=== PATIENT | female | born 1940 | race Caucasian/White ===

== ENCOUNTER → 2023-05-25 13:24 | Outpatient (REF) | payer MEDICARE, OTHER, SELFPAY ==
[2023-05-25 14:41] LABS: Blood Urea Nitrogen 20 mg/dl (7-17); Calcium 10.1 mg/dl (8.4-10.2); Carbon Dioxide 27 mmol/L (22-30); Chloride 93 mmol/L (98-107); Glucose 103 mg/dl (70-99); Potassium 4.8 mmol/L (3.5-5.1); Sodium 127 mmol/L (135-145); eGFR > 60.00
== END ==
LOC: RAD 13:24
PROVIDERS: ATTENDING PHYSICIAN Family Medicine
DX: E87.1 Hypo-osmolality and hyponatremia (principal); M25.551 Pain in right hip; S22.000A Wedge compression fracture of unspecified thoracic vertebra, initial encounter for closed fracture
CPT/HCPCS: 36415; 72072; 73502; 80048

== ENCOUNTER → 2023-06-04 13:53 | Outpatient (REF) | payer MEDICARE, OTHER, SELFPAY ==
[2023-06-04 15:55] LABS: Blood Urea Nitrogen 25 mg/dl (7-17); Calcium 10.2 mg/dl (8.4-10.2); Carbon Dioxide 26 mmol/L (22-30); Chloride 93 mmol/L (98-107); Glucose 83 mg/dl (70-99); Potassium 4.7 mmol/L (3.5-5.1); Sodium 130 mmol/L (135-145); eGFR > 60.00
== END ==
LOC: HWLAB 13:53
PROVIDERS: ATTENDING PHYSICIAN Family Medicine
DX: E87.1 Hypo-osmolality and hyponatremia (principal)
CPT/HCPCS: 36415; 80048

== ENCOUNTER → 2023-06-14 13:40 | Outpatient (REF) | payer MEDICARE, OTHER, SELFPAY ==
[2023-06-14 15:04] LABS: Blood Urea Nitrogen 21 mg/dl (7-17); Calcium 9.6 mg/dl (8.4-10.2); Carbon Dioxide 27 mmol/L (22-30); Chloride 97 mmol/L (98-107); Glucose 110 mg/dl (70-99); Potassium 4.8 mmol/L (3.5-5.1); Sodium 128 mmol/L (135-145); eGFR > 60.00
== END ==
LOC: REG 13:40
PROVIDERS: ATTENDING PHYSICIAN Physician Assistant
DX: E87.1 Hypo-osmolality and hyponatremia (principal)
CPT/HCPCS: 36415; 80048

== ENCOUNTER 2023-07-09 12:26 | Emergency (ER) | payer MEDICARE, OTHER, SELFPAY ==
[2023-07-09 12:40] VITALS: BP 150/66
[2023-07-09 13:43] VITALS: BMI 15.4
[2023-07-09 13:50] LABS: % Basophils 0.3 % (0-2); % Eosinophils 0.8 % (0-6); % Immature Granulocytes 0.5 % (0-0.5); % Lymphocytes 8.7 % (20.5-51.1); % Monocytes 9.1 % (1.7-9.3); % Neutrophils 80.6 % (42.2-75.2); Absolute Eosinophils 0.1 10^3/uL (0-0.7); Absolute Lymphocytes 0.5 10^3/uL (1.2-3.4); Absolute Monocytes 0.6 10^3/uL (0.1-0.6); Hematocrit 28.3 % (37.0-47.0); Hemoglobin 9.8 g/dL (12.0-16.0); Mean Corp Hgb Conc. 34.6 g/dL (33.0-37.0); Mean Corpuscular Hgb 32.9 pg (27.0-31.0); Mean Platelet Volume 9.3 fL (7.4-10.4); Nucleated Red Blood Cells % 0 %; Platelet Count 292 10^3/uL (130-400); Red Blood Cell Count 2.98 10^6/uL (4.20-5.40); Red Cell Dist. Width 13.2 % (11.5-14.5); White Blood Cell Count 6.2 10^3/uL (4.8-10.8)
--- NOTE | 2023-07-09 14:00 | ED.GENMED ---
History of Present Illness
<Adan Pate PA-C - Last Filed: 07/15/23 10:26>
General
Chief Complaint: Back Pain
Source: patient
Exam Limitations: none
Time Seen by Provider: 07/09/23 13:36
Travel History
Have you had any contact with someone who has COVID-19?: No
Do you have any symptoms of coronavirus? Fever > 100 degrees, chills, cough, shortness of breath, sore throat, loss of taste or smell, muscle aches, or headache?: No
History of Present Illness
History of Present Illness:
82-year-old female presents with ongoing symptoms of nausea mid back pain and lightheadedness. The symptoms have been going on for quite some time. She also is known to be hyponatremic. Symptoms are persistent and worsening and presented here for
evaluation. She lives with her daughter. The daughter does most of the history. Patient denies significant abdominal pain. No chest pain. There is lightheadedness occasionally. Patient also has been taking tramadol for her chronic back pain.
She does think this helps for pain at times when she gets dizzy after she takes it. She is nauseous as well.
Past History
<Adan Pate PA-C - Last Filed: 07/15/23 10:26>
Past History
ED Past Medical History: HTN, Hypercholesterolemia, Other (chronic hypoNa) and Other (Scoliosis, arthritis, osteoporosis, lumbar degenerative disc disease)
ED Past Surgical History: Orthopedic (knee rplacement 06/2017)
Patient has exhibited threatening behavior?: No
Social History
Tobacco: Former smoker
Alcohol: Occasional
Personal:
Living: alone
Family History
Family History: Other (Stroke )
Phy Exam
<Adan Pate PA-C - Last Filed: 07/15/23 10:26>
Physical Exam
Physical Exam:
General: Slightly cachectic appearing female no acute respiratory distress
HEENT: Normocephalic atraumatic
Heart: Regular rate and rhythm no murmurs
Lungs: Clear to auscultation bilaterally no wheezing
Abdomen: Soft nontender nondistended no guarding rebound normal bowel sounds
Extremities: No cyanosis
Skin: Warm no rash
Course
<Adan Pate PA-C - Last Filed: 07/15/23 10:26>
Orders/Labs/Results
Orders:
Orders
07/09/23 12:44
Electrocardiogram (*1) Urgent
Reason for Study: Other
Other Reason for Exam: nausea
EKG- Treatment ONCE
07/09/23 13:42
Complete Blood Count/With Diff Urgent
Comprehensive Metabolic Panel Urgent
Troponin I Urgent
07/09/23 16:03
CT Thoracic Spine W/o Iv Contr Urgent
Comment:
Reason For Exam: mid back pain
07/09/23 16:13
Ibuprofen [Motrin] 400 mg PO NOW STA
Tramadol HCl [Ultram] 50 mg PO NOW STA
Abnormal Lab Results
07/09/23
13:42
RBC 2.98 L 10^6/uL
(4.20-5.40)
Hgb 9.8 L g/dL
(12.0-16.0)
Hct 28.3 L %
(37.0-47.0)
MCH 32.9 H pg
(27.0-31.0)
Absolute Lymphs (auto) 0.5 L 10^3/uL
(1.2-3.4)
Neutrophils % 80.6 H %
(42.2-75.2)
Lymphocytes % 8.7 L %
(20.5-51.1)
Sodium 126 L mmol/L
(135-145)
Chloride 92 L mmol/L
(98-107)
BUN 27 H mg/dl
(7-17)
Glucose 102 H mg/dl
(70-99)
07/09/23 13:42
07/09/23 13:42
Vital Signs
Initial and Last Documented VS:
Initial Vital Signs
Temp Pulse Resp BP Pulse Ox
97.6 F 68 20 150/66 98
07/09/23 12:40 07/09/23 12:40 07/09/23 12:40 07/09/23 12:40 07/09/23 12:40
Last Documented Vital Signs
Temp Pulse Resp BP Pulse Ox
97.6 F 68 20 165/74 98
07/09/23 12:40 07/09/23 12:40 07/09/23 12:40 07/09/23 15:14 07/09/23 18:35
<Gilberto Drake MD - Last Filed: 07/09/23 16:13>
Orders/Labs/Results
Orders:
Orders
07/09/23 12:44
Electrocardiogram (*1) Urgent
Reason for Study: Other
Other Reason for Exam: nausea
EKG- Treatment ONCE
07/09/23 13:42
Complete Blood Count/With Diff Urgent
Comprehensive Metabolic Panel Urgent
Troponin I Urgent
07/09/23 16:03
CT Thoracic Spine W/o Iv Contr Urgent
Comment:
Reason For Exam: mid back pain
07/09/23 16:13
Ibuprofen [Motrin] 400 mg PO NOW STA
Tramadol HCl [Ultram] 50 mg PO NOW STA
Abnormal Lab Results
07/09/23
13:42
RBC 2.98 L 10^6/uL
(4.20-5.40)
Hgb 9.8 L g/dL
(12.0-16.0)
Hct 28.3 L %
(37.0-47.0)
MCH 32.9 H pg
(27.0-31.0)
Absolute Lymphs (auto) 0.5 L 10^3/uL
(1.2-3.4)
Neutrophils % 80.6 H %
(42.2-75.2)
Lymphocytes % 8.7 L %
(20.5-51.1)
Sodium 126 L mmol/L
(135-145)
Chloride 92 L mmol/L
(98-107)
BUN 27 H mg/dl
(7-17)
Glucose 102 H mg/dl
(70-99)
07/09/23 13:42
07/09/23 13:42
Vital Signs
Initial and Last Documented VS:
Initial Vital Signs
Temp Pulse Resp BP Pulse Ox
97.6 F 68 20 150/66 98
07/09/23 12:40 07/09/23 12:40 07/09/23 12:40 07/09/23 12:40 07/09/23 12:40
Last Documented Vital Signs
Temp Pulse Resp BP Pulse Ox
97.6 F 68 20 165/74 98
07/09/23 12:40 07/09/23 12:40 07/09/23 12:40 07/09/23 15:14 07/09/23 18:35
<Adan Pate PA-C - Last Filed: 07/15/23 10:26>
MDM/Problems Addressed
Differential Diagnosis Includes:
Worsening mid back pain with nausea known scoliosis known chronic back pain with compression deformities. Known history of hyponatremia. Per daughter, patient is more symptomatic than usual. Will check labs. Consider CT scan for further detail
and evaluation of main vessels in the thorax
<Adan Pate PA-C - Last Filed: 07/15/23 10:26>
*Critical Care Note
Total Time (30-74mins, 75-104mins- exclusive of procedures): Not Applicable
<Adan Pate PA-C - Last Filed: 07/15/23 10:26>
Update Note
Update Note:
Recheck patient. She does appear comfortable. She has hyponatremia with a value of 126 but this is chronic. She has chronic back pain. She is weakness and nausea all these are chronic symptoms may be medication related. Will advise close
follow-up with pain management and nephrology. CT of the thoracic spine is pending
ED Attending Note
<Adan Pate PA-C - Last Filed: 07/15/23 10:26>
-
Portions of this chart may have been created with voice recognition software.� Occasional wrong word or��sound alike� substitutions may have occurred due to the inherent limitations of voice recognition software.
<Gilberto Drake MD - Last Filed: 07/09/23 16:13>
ED Attending Note
Patient seen and examined by attending physician: Yes
ED Attending Note:
I have seen and evaluated the patient with a [id number] encounter. I have spoken to the advance practicer provider and involved in the medical history, the physical exam, medical decision making.
Evaluation and management service: agree unless noted differently below.
Results interpretation: agree unless noted differently below.
Focused HPI: 82-year-old female with history as documented presents with her children for evaluation of acute on chronic mid back pain. Patient has severe scoliosis and has had chronic pain in the mid back. She had been reasonably well-controlled
with Tylenol/Motrin/tramadol and for some time was really only using the tramadol sparingly but over the past 3 months is back to using tramadol quite regularly for severe mid back pain. Last night had a very intense episode and ultimately children
decided to bring her in to be assessed. She has not had any direct trauma or injury. She has not had any numbness or weakness in her extremities. She has not had any chest pain, abdominal pain. Children also concerned about some mild dizziness
that has also been ongoing for the past few months and worsening. She has had chronic worsening hyponatremia of unclear etiology�PCP recommended increased salt intake but they have done this without improvement.
Physical exam: Awake alert and oriented. Patient is very frail with a BMI of 15. Hypertensive but has otherwise normal vitals. She has severe scoliosis and tenderness in the mid thoracic spine. Motor and sensory function intact in all
extremities.
Medical Decision Making: Patient presents with acute on chronic mid back pain also chronic worsening symptoms. Hypertensive otherwise normal vitals, exam as above. Will check basic labs including a CBC and CMP. Check an EKG. Will check a CT of
the thoracic spine. Will reassess after the above. Likely needs to follow long-term with pain management for back.
Labs reviewed: CBC shows mild anemia, CMP shows hyponatremia 126 which is chronic. EKG shows a sinus rhythm. Awaiting results of CT. Hyponatremia is chronic but she should see nephrology as an outpatient.
Discharge Plan
Departure
Patient Disposition: Home (Routine Discharge)
Date of Disposition: 07/09/23
Time of Disposition: 19:13
Patient with high blood pressure during this ER visit?: Yes
Discharge Problem:
Chronic back pain, Chronic hyponatremia
Prescriptions:
No Action
atorvastatin 40 MG tablet
40 mg PO QPM
acetaminophen 325 MG tablet
650 mg PO BID
Iron 100 Plus 1 EACH tablet
1 ea PO DAILY
Patient Comments:
only taking fe pill 65 mg
aspirin 81 MG tablet,delayed release (DR/EC)
81 mg PO DAILY
tramadol 50 MG tablet
50 mg PO Q6HPRN PRN (Reason: pain)
labetalol 100 MG tablet
100 mg PO BID
calcium carbonate-vitamin D3 [Oyster Shell Calcium-Vit D3] 500 MG tablet
1,000 mg PO DAILY Qty: 60 0RF
gabapentin 100 MG capsule
200 mg PO BID
Referrals:
Pranay Dale MD [Family Provider] -
Binu Spence MD [Active] -
Activity Restrictions/Additional Instructions:
Continue current regimen. Please keep appointment with pain management. Please also follow-up with nephrology for evaluation of hyponatremia. Return if needed otherwise.
Interventions
Interventions:
*Risk Screen - Suicide Last Done: 07/09/23 13:32
*General Assessment Last Done: 07/09/23 13:32
*Neglect/Abuse Screening Last Done: 07/09/23 13:32
ED- Fall Risk Assessment Last Done: 07/09/23 13:32
*ED COVID-19 Vaccine History Last Done: 07/09/23 13:32
*Nursing Disposition Last Done: 07/09/23 19:21
ED-Musculoskeletal Assessment Last Done: 07/09/23 13:32
Discharge Date and Time
Discharge Date/Time: 07/09/23 19:34
Print Language: ROMANSH
[2023-07-09 14:07] LABS: ALT (SGPT) 21 U/L (0-35); AST (SGOT) 27 U/L (14-36); Albumin 4.4 g/dl (3.5-5.0); Alkaline Phosphatase 85 U/L (38-126); Blood Urea Nitrogen 27 mg/dl (7-17); Calcium 9.8 mg/dl (8.4-10.2); Carbon Dioxide 24 mmol/L (22-30); Chloride 92 mmol/L (98-107); Estimated Creatinine Clearance 43 ml/min; Glucose 102 mg/dl (70-99); Potassium 4.6 mmol/L (3.5-5.1); Sodium 126 mmol/L (135-145); Total Bilirubin 0.7 mg/dl (0.2-1.3); Total Protein 6.5 g/dl (6.3-8.2); eGFR > 60.00
[2023-07-09 14:17] LABS: Troponin I < 0.012 ng/ml
[2023-07-09 15:14] VITALS: BP 165/74
[2023-07-09] MEDS: MOTRIN 400 MG PO (16:48)
[2023-07-09] MEDS: ULTRAM 50 MG PO (16:49)
== END 2023-07-09 19:34 | disposition home or self-care (01) ==
LOC: EMR 12:26
PROVIDERS: Physician Assistant; EMERGENCY PHYSICIAN Emergency Medicine; FAMILY PHYSICIAN Family Medicine
DX: G89.29 Other chronic pain (principal); M54.9 Dorsalgia, unspecified; E87.1 Hypo-osmolality and hyponatremia; I10 Essential (primary) hypertension; Z87.891 Personal history of nicotine dependence
CPT/HCPCS: 99284; 72128; 80053; 84484; 85025; 93005

== ENCOUNTER → 2023-08-02 13:33 | Outpatient (REF) | payer MEDICARE, OTHER, SELFPAY ==
[2023-08-02 15:29] LABS: ALT (SGPT) 22 U/L (0-35); AST (SGOT) 29 U/L (14-36); Albumin 3.7 g/dl (3.5-5.0); Alkaline Phosphatase 57 U/L (38-126); Blood Urea Nitrogen 21 mg/dl (7-17); Calcium 9.7 mg/dl (8.4-10.2); Carbon Dioxide 25 mmol/L (22-30); Chloride 95 mmol/L (98-107); Glucose 73 mg/dl (70-99); Osmolality Urine 383 mOsm/kg (300-900); Potassium 5.4 mmol/L (3.5-5.1); Sodium 127 mmol/L (135-145); Total Bilirubin 0.4 mg/dl (0.2-1.3); Total Protein 5.7 g/dl (6.3-8.2); eGFR > 60.00
[2023-08-02 15:30] LABS: Urine Sodium 60 mmol/L (30-90)
== END ==
LOC: REG 13:33
PROVIDERS: ATTENDING PHYSICIAN Student in an Organized Health Care Education/Training Program; FAMILY PHYSICIAN Family Medicine
DX: E87.1 Hypo-osmolality and hyponatremia (principal)
CPT/HCPCS: 36415; 80048; 80053; 83935; 84300

== ENCOUNTER 2023-08-09 19:15 | Emergency (ER) | payer MEDICARE, OTHER, SELFPAY ==
[2023-08-09 19:18] VITALS: BP 192/106
[2023-08-09] MEDS: ADACEL 0.5 ML IM (20:56)
[2023-08-09 21:05] VITALS: BP 185/84
--- NOTE | 2023-08-09 22:52 | ED.MUSCINJ ---
HPI-Injury
General
Chief Complaint: Fall
Source: patient
Exam Limitations: none
Time Seen by Provider: 08/09/23 20:30
Nursing documentation reviewed up to this point in time: agreed with
History of Present Illness-Injury
Is this injury a work related problem?: No
Is pt an associate of [facility]?: No
Initial Injury comments:
Patient states she tripped and fell while leaving dining room. Hit face on floor. No LOC. Has abrasion and swelling to upper lip. Sustained a small skin tear to her right wrist. Injury occurred jsut [employer]ILL BEAM [employer]TER. Brought to ED by family for eval.
Past History
Past History
ED Past Medical History: HTN, Hypercholesterolemia, Other (chronic hypoNa) and Other (Scoliosis, arthritis, osteoporosis, lumbar degenerative disc disease)
ED Past Surgical History: Orthopedic (knee rplacement 06/2017)
Patient has exhibited threatening behavior?: No
Social History
Tobacco: Former smoker
Alcohol: Occasional
Personal:
Living: alone
Family History
Family History: Other (Stroke )
Review of Systems
Review of Systems
Allergies reviewed?: Yes
All Other Systems: ROS reviewed and negative except as documented in HPI and ROS
Constitutional: Reports no symptoms
EENT: Reports other (swelling and abrasion to upper lip.)
Respiratory: Reports no symptoms
Cardiac: Reports no symptoms
ABD/GI: Reports no symptoms
: Reports no symptoms
Musculoskeletal: Reports no symptoms
Skin: Reports other (small skin tear to right wrist.)
Neurological: Reports no symptoms
Psychiatric: Reports no symptoms
Phy Exam
General Physical Exam
General Presentation: well appearing and no apparent distress
General age: appears stated age
General Skin: warm and dry
General Habitus: normal
General Mental: alert
ENT Exam
ENT Exam: other (superficial abrasion and mild swelling to upper lip. No dental injury. Full nonpainful ROM to jaw.)
Eye Exam
Eye Exam: PERRL, EOMI, conjunctiva normal and globe normal
[place] Coma Scale
Eye Opening: Spontaneous
Verbal Response: Oriented
Motor Response: Obeys Commands
GCS Total Score: 15
Musculoskeletal Exam
Musculoskeletal Exam: full ROM (Full nonpainful ROM to head/neck, upper and lower extremities.) and neuro vasc intact
Skin Exam
Skin Exam: normal color, warm/dry and other (superficial skin tear to right wrist. Wound cleansed with NSS, antibiotic ointment and dressing applied)
Psychiatric Exam
Psychiatric Exam: normal mood/affect
Injury Course
Orders/Labs/Results
Orders:
Orders
08/09/23 20:53
Tetanus/Diphth/Acelpertussis [Adacel] 0.5 ml IM .ONCE ONE
*Critical Care Note
Total Time (30-74mins, 75-104mins- exclusive of procedures): Not Applicable
ED Attending Note
-
Portions of this chart may have been created with voice recognition software.� Occasional wrong word or��sound alike� substitutions may have occurred due to the inherent limitations of voice recognition software.
Discharge Plan
Departure
Patient Disposition: Home (Routine Discharge)
Date of Disposition: 08/09/23
Time of Disposition: 20:54
Patient with high blood pressure during this ER visit?: No
Condition: Good
Covid-19: Not Applicable
Discharge Problem:
Abrasion of lip, Tear of skin of right wrist
Instructions: Wound Care (DC), Contusion (DC), Using Cold for Pain, Wound Inside The Mouth
Prescriptions:
No Action
atorvastatin 40 MG tablet
40 mg PO QPM
acetaminophen 325 MG tablet
650 mg PO BID
Iron 100 Plus 1 EACH tablet
1 ea PO DAILY
Patient Comments:
only taking fe pill 65 mg
aspirin 81 MG tablet,delayed release (DR/EC)
81 mg PO DAILY
tramadol 50 MG tablet
50 mg PO Q6HPRN PRN (Reason: pain)
labetalol 100 MG tablet
100 mg PO BID
calcium carbonate-vitamin D3 [Oyster Shell Calcium-Vit D3] 500 MG tablet
1,000 mg PO DAILY Qty: 60 0RF
gabapentin 100 MG capsule
200 mg PO BID
Activity Restrictions/Additional Instructions:
Follow up with your family doctor.
Interventions
Interventions:
*Risk Screen - Suicide Last Done: 08/09/23 19:18
*General Assessment Last Done: 08/09/23 21:05
*Neglect/Abuse Screening Last Done: 08/09/23 19:18
ED- Fall Risk Assessment Last Done: 08/09/23 21:05
*ED COVID-19 Vaccine History Last Done: 08/09/23 21:05
*Nursing Disposition Last Done: 08/09/23 21:05
ED-Musculoskeletal Assessment Last Done: 08/09/23 21:05
ED- Neurological Assessment Last Done: 08/09/23 21:05
ED-Skin Assessment Last Done: 08/09/23 21:05
Discharge Date and Time
Discharge Date/Time: 08/09/23 21:08
Print Language: TELUGU
== END 2023-08-09 21:08 | disposition home or self-care (01) ==
LOC: EMR 19:15
PROVIDERS: EMERGENCY PHYSICIAN Emergency Medicine; FAMILY PHYSICIAN Family Medicine
DX: S00.511A Abrasion of lip, initial encounter (principal); S61.511A Laceration without foreign body of right wrist, initial encounter; W01.0XXA Fall on same level from slipping, tripping and stumbling without subsequent striking against object, initial encounter; Z23 Encounter for immunization; I10 Essential (primary) hypertension; E78.00 Pure hypercholesterolemia, unspecified; M41.9 Scoliosis, unspecified; M19.90 Unspecified osteoarthritis, unspecified site; M81.0 Age-related osteoporosis without current pathological fracture; M51.36 Other intervertebral disc degeneration, lumbar region; Z87.891 Personal history of nicotine dependence
CPT/HCPCS: 99282; 90471; 90715

== ENCOUNTER → 2023-08-16 14:49 | Outpatient (REF) | payer MEDICARE, OTHER, SELFPAY ==
[2023-08-16 16:12] LABS: Blood Urea Nitrogen 64 mg/dl (7-17); Carbon Dioxide 28 mmol/L (22-30); Chloride 93 mmol/L (98-107); Glucose 125 mg/dl (70-99); Potassium 5.1 mmol/L (3.5-5.1); Sodium 129 mmol/L (135-145); eGFR > 60.00
== END ==
LOC: REG 14:49
PROVIDERS: ATTENDING PHYSICIAN Student in an Organized Health Care Education/Training Program; FAMILY PHYSICIAN Family Medicine
DX: E87.1 Hypo-osmolality and hyponatremia (principal)
CPT/HCPCS: 36415; 80048

== ENCOUNTER → 2023-09-13 12:59 | Outpatient (REF) | payer MEDICARE, OTHER, SELFPAY ==
[2023-09-13 16:23] LABS: Blood Urea Nitrogen 76 mg/dl (7-17); Calcium 10.1 mg/dl (8.4-10.2); Carbon Dioxide 28 mmol/L (22-30); Chloride 96 mmol/L (98-107); Glucose 94 mg/dl (70-99); Potassium 4.8 mmol/L (3.5-5.1); Sodium 130 mmol/L (135-145); eGFR > 60.00
== END ==
LOC: HWLAB 12:59
PROVIDERS: ATTENDING PHYSICIAN Student in an Organized Health Care Education/Training Program; FAMILY PHYSICIAN Family Medicine
DX: E87.1 Hypo-osmolality and hyponatremia (principal)
CPT/HCPCS: 36415; 80048

== ENCOUNTER → 2023-11-26 13:23 | Outpatient (REF) | payer MEDICARE, OTHER, SELFPAY | LOC: RAD 13:23 | PROVIDERS: ATTENDING PHYSICIAN Otolaryngology; FAMILY PHYSICIAN Family Medicine | DX: I65.23 Occlusion and stenosis of bilateral carotid arteries (principal) | CPT/HCPCS: 93880 ==

== ENCOUNTER → 2023-12-17 14:01 | Outpatient (REF) | payer MEDICARE, OTHER, SELFPAY ==
[2023-12-17 14:57] LABS: Osmolality Serum 278 mOsm/kg (275-300)
[2023-12-17 15:03] LABS: Blood Urea Nitrogen 28 mg/dl (7-17); Calcium 9.9 mg/dl (8.4-10.2); Carbon Dioxide 27 mmol/L (22-30); Chloride 94 mmol/L (98-107); Glucose 65 mg/dl (70-99); Potassium 4.9 mmol/L (3.5-5.1); Sodium 131 mmol/L (135-145); Uric Acid 2.8 mg/dl (2.5-6.2); eGFR > 60.00
[2023-12-17 15:18] LABS: NT-proBNP 427 pg/ml
[2023-12-17 15:40] LABS: Cortisol, Random 8.6 ug/dl; TSH Reflex To Free T4 1.03 uIU/ml (0.47-4.68)
== END ==
LOC: REG 14:01
PROVIDERS: ATTENDING PHYSICIAN Specialist; FAMILY PHYSICIAN Family Medicine
DX: E87.1 Hypo-osmolality and hyponatremia (principal)
CPT/HCPCS: 36415; 80048; 82533; 83880; 83930; 84443; 84550

== ENCOUNTER → 2024-01-25 09:36 | Outpatient (REF) | payer MEDICARE, OTHER, SELFPAY ==
[2024-01-25 12:56] LABS: Blood Urea Nitrogen 24 mg/dl (7-17); Calcium 9.6 mg/dl (8.4-10.2); Carbon Dioxide 27 mmol/L (22-30); Chloride 96 mmol/L (98-107); Glucose 102 mg/dl (70-99); Potassium 4.6 mmol/L (3.5-5.1); Sodium 132 mmol/L (135-145); Uric Acid 3.1 mg/dl (2.5-6.2); eGFR > 60.00
[2024-01-25 13:06] LABS: NT-proBNP 475 pg/ml
[2024-01-25 13:08] LABS: Osmolality Urine 327 mOsm/kg (300-900)
[2024-01-25 13:28] LABS: Cortisol, Random 12.2 ug/dl; TSH Reflex To Free T4 0.96 uIU/ml (0.47-4.68)
[2024-01-25 13:32] LABS: Erythrocyte Sed Rate 10 mm/hour (0-20)
[2024-01-25 14:04] LABS: Folate > 20.0 ng/ml (2.76-20); Vitamin B12 > 1000 pg/ml (239-931)
[2024-01-25 16:34] LABS: Osmolality Serum 279 mOsm/kg (275-300)
== END ==
LOC: HWLAB 09:36
PROVIDERS: ATTENDING PHYSICIAN Specialist; FAMILY PHYSICIAN Family Medicine; REFERRING PHYSICIAN Specialist
DX: E87.1 Hypo-osmolality and hyponatremia (principal); I10 Essential (primary) hypertension; D50.9 Iron deficiency anemia, unspecified; R26.81 Unsteadiness on feet
CPT/HCPCS: 36415; 80048; 82533; 82607; 82746; 83880; 83930; 83935; 84443; 84550; 85652

== ENCOUNTER → 2024-02-28 12:50 | Outpatient (REF) | payer MEDICARE, OTHER, SELFPAY | LOC: MRI 3T 12:50 | PROVIDERS: ATTENDING PHYSICIAN Specialist; FAMILY PHYSICIAN Family Medicine | DX: R26.81 Unsteadiness on feet (principal) | CPT/HCPCS: 70551 ==

== ENCOUNTER 2024-05-29 14:05 | Inpatient (IN) | payer MEDICARE, OTHER, SELFPAY ==
[2024-05-28] VITALS (9 sets, daily range): BP systolic 155–221; BP diastolic 66–100; PULSE 63–80; BMI 19.8; BMI 18.5
[2024-05-28 16:34] LABS: % Basophils 0.5 % (0-2); % Eosinophils 0.2 % (0-6); % Immature Granulocytes 0.4 % (0-0.5); % Lymphocytes 8.2 % (20.5-51.1); % Monocytes 8.5 % (1.7-9.3); % Neutrophils 82.2 % (42.2-75.2); Absolute Lymphocytes 0.7 10^3/uL (1.2-3.4); Absolute Monocytes 0.7 10^3/uL (0.1-0.6); Absolute Neutrophils 6.9 10^3/uL (1.4-6.5); Hematocrit 36.2 % (37.0-47.0); Hemoglobin 13.1 g/dL (12.0-16.0); Mean Corp Hgb Conc. 36.2 g/dL (33.0-37.0); Mean Corpuscular Hgb 33.7 pg (27.0-31.0); Mean Corpuscular Volume 93.1 fL (81.0-99.0); Mean Platelet Volume 8.8 fL (7.4-10.4); Nucleated Red Blood Cells % 0 %; Platelet Count 264 10^3/uL (130-400); Red Blood Cell Count 3.89 10^6/uL (4.20-5.40); Red Cell Dist. Width 11.3 % (11.5-14.5); White Blood Cell Count 8.3 10^3/uL (4.8-10.8)
[2024-05-28 16:48] LABS: ALT (SGPT) 24 U/L (0-35); AST (SGOT) 29 U/L (14-36); Albumin 4.7 g/dl (3.5-5.0); Alkaline Phosphatase 55 U/L (38-126); Blood Urea Nitrogen 22 mg/dl (7-17); Calcium 9.5 mg/dl (8.4-10.2); Carbon Dioxide 24 mmol/L (22-30); Chloride 92 mmol/L (98-107); Glucose 106 mg/dl (70-99); Sodium 124 mmol/L (135-145); Total Protein 6.7 g/dl (6.3-8.2); eGFR > 60.00
[2024-05-28 16:58] LABS: Troponin I < 0.012 ng/ml
--- NOTE | 2024-05-28 17:59 | ED.GENMED ---
History of Present Illness
General
Chief Complaint: Fall
Source: patient and family
Time Seen by Provider: 05/28/24 17:30
History of Present Illness
History of Present Illness:
83-year-old female presenting to the emergency department via EMS from [facility] for evaluation of an unwitnessed fall resulting in right-sided facial contusion. Patient unfortunately does not recollect events of the fall due to her
history of dementia. At present time patient is without any concerns stating she feels as if she is in her usual state of health, she does note skin tear to the right hand but not having any pain to the right hand. Patient is denying any
headaches, visual changes, focal weakness or numbness, chest pain or shortness of breath. 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
possible the Plavix was causing a low sodium. Patient was also started on Paxil recently but had only taken 2 total doses of this medication. Daughter notes that patient been experiencing intermittent dizziness for the better part of 2 years, no
change in symptoms today.
Past History
Past History
ED Past Medical History: HTN, Hypercholesterolemia, Other (chronic hypoNa) and Other (Scoliosis, arthritis, osteoporosis, lumbar degenerative disc disease)
ED Past Surgical History: Appendectomy and Orthopedic (knee rplacement 06/2017)
Patient has exhibited threatening behavior?: No
Social History
Tobacco: Former smoker
Alcohol: Occasional
Drug: None
Personal:
Living: assisted
Family History
Family History: Other (Stroke )
Review of Systems
Review of Systems
All Other Systems: ROS reviewed and negative except as documented in HPI and ROS
Phy Exam
Physical Exam
Physical Exam:
GENERAL: Alert , in no apparent distress
HEAD: Right sided forehead and periorbital ecchymosis extending into the nasal bridge
EYE: pupils equal and reactive, pupils 3 mm bilateral, EOMI
NECK: Supple, no midline tenderness
ENT: o/p clr, mmm.
CARDIAC: Regular rate and rhythm .
LUNGS: Clear breath sounds bilaterally, no acute respiratory distress, no wheezes/rales/rhonchi
ABDOMEN: Soft, without focal tenderness, no r/g, no cvat
NEUROLOGICAL: Alert and oriented
SKIN: Warm and dry, 2-1/2 to 3 cm superficial skin tear of the dorsum of the right hand along the interdigital webbing space going towards the first metacarpal. Skin tear is somewhat macerated
MUSCULOSKELETAL: No edema, well perfused.
PSYCH: Normal and appropriate interaction.
Scores
Heart Failure Risk
Heart Failure Risk Score: Not Applicable
Heart Score for Chest Pain Patients
STEMI patient?: Not applicable
Withdrawal Assessment of Alcohol
Withdrawal Assessment Completed?: Not applicable
Course
Orders/Labs/Results
Orders:
Orders
05/28/24 16:05
CT Cervical Spine W/o Iv Contr Urgent
Comment:
Reason For Exam: fall on plavix
CT Facial Bones W/o Iv Contras Urgent
Comment:
Reason For Exam: fall on plavix
CT Head W/o Iv Contrast Urgent
Comment:
Reason For Exam: fall on plavix
05/28/24 16:06
EKG [Electrocardiogram (*1)] Urgent
Reason for Study: Syncope
EKG- Treatment ONCE
05/28/24 16:18
Complete Blood Count/With Diff Urgent
Comprehensive Metabolic Panel Urgent
Serum Osmolality Urgent
Comment: ADD ON
Troponin I Urgent
05/28/24 17:33
Add On- LAB Urgent
Tests Added?: serum osmo
05/28/24 18:20
Urinalysis Reflex To Culture Urgent
Date Specimen was Collected: 05/28/24
Time Specimen was Collected: 18:13
Urine Microscopic Reflex Cult Urgent
Urine Osmolality Random [Osmolality, Random Urine] Routine
Date Specimen was Collected: 05/28/24
Time Specimen was Collected: 18:13
Urine Sodium Urgent
Date Specimen was Collected: 05/28/24
Time Specimen was Collected: 18:13
Urine Culture Urgent
MABEL Source: U
Specimen Description:
Date Specimen was Collected: 05/28/24
Time Specimen was Collected: 18:13
05/28/24 18:48
Orthostatic Vital Signs As Directed
Orthostatic VS Frequency: BID
Comment: Include now
Teds [Anti-embolism (ULISES) Hose] As Directed
Type: Knee high
05/28/24 18:51
Pt Eval And Treat Routine
Activity Level: As Tolerated
05/28/24 18:54
Labetalol [Trandate] 100 mg PO NOW STA
05/28/24 18:57
Admit/Transfer Patient As Directed
Co-Sign Provider:
Level of Care: Observation services
Assign to:: Telemetry
Physician / Group: Dallas Villarreal
Diagnosis: hyponatremia
Reason for Telemetry: Syncope
Date to Stop Telemetry: 05/30/24
Time to Stop Telemetry: 11:00
PRN Pain Medication Management As Directed
May give lesser potent ordered pain med per pt: Yes
preference::
Protocol:: Medication orders for pain may be administered in a
manner that supports deferring to patient preference
when the pt is:
- Requesting an ordered lesser potent pain medication.
Least to most potent pain medications are defined
as: acetaminophen < NSAID < tramadol < opioids
(morphine, oxycodone, hydromorphone).
- Requesting a lesser dose of the same medication IF
ORDERED.
- Requesting a less intrusive route of administration
if both routes are prescribed by the provider (PO <
IV).
05/28/24 18:59
Code Status As Directed
Resuscitation Status: Do not resuscitate
Reached after discussion with pt or family/Healthcare POA: Yes
Decision communicated with: patient and daughter
DNR Bracelet Application ONCE
05/28/24 19:06
Furosemide [Lasix] 20 mg PO NOW STA
05/30/24 11:00
DC Protocol for Telemetry ONCE
Abnormal Lab Results
05/28/24 05/28/24
16:18 18:20
RBC 3.89 L 10^6/uL
(4.20-5.40)
Hct 36.2 L %
(37.0-47.0)
MCH 33.7 H pg
(27.0-31.0)
RDW 11.3 L %
(11.5-14.5)
Absolute Neuts (auto) 6.9 H 10^3/uL
(1.4-6.5)
Absolute Lymphs (auto) 0.7 L 10^3/uL
(1.2-3.4)
Absolute Monos (auto) 0.7 H 10^3/uL
(0.1-0.6)
Neutrophils % 82.2 H %
(42.2-75.2)
Lymphocytes % 8.2 L %
(20.5-51.1)
Sodium 124 L mmol/L
(135-145)
Chloride 92 L mmol/L
(98-107)
BUN 22 H mg/dl
(7-17)
Glucose 106 H mg/dl
(70-99)
Serum Osmolality 262 L mOsm/kg
(275-300)
Leukocyte Esterase Rfl 1+ A
(Negative)
Urine Albumin (Reflex) 1+ A
(Neg - Trace)
05/28/24 16:18
05/28/24 16:18
Vital Signs
Initial and Last Documented VS:
Initial Vital Signs
Temp Pulse BP Pulse Ox
97.7 F 74 163/86 94
05/28/24 15:56 05/28/24 15:56 05/28/24 15:56 05/28/24 15:56
Last Documented Vital Signs
Temp Pulse Resp BP Pulse Ox
98.9 F 71 20 221/69 99
05/28/24 19:07 05/28/24 19:26 05/28/24 19:07 05/28/24 19:26 05/28/24 19:07
MDM/Problems Addressed
Differential Diagnosis Includes:
Accidental fall, hyponatremia, intracranial bleeding, facial fracture, concussion
MDM/Problems Addressed:
83-year-old female presenting to the emergency department for evaluation following reported accidental fall earlier today at her living facility. Patient with history of dementia and unable to recollect how or why she fell. She does have
right-sided facial trauma noted on her exam. CT of the head, facial bones and C-spine ordered. Labs initiated. Right hand was irrigated, not amenable to suturing. Dressing applied. Disposition pending
*Radiology
Radiology exam reviewed: radiology read reviewed
*Pulse Oximetry
Patient hypoxic: no
*EKG
Heart Rate: 73
Rate: normal
Rhythm: sinus
[place]: left axis deviation
*Drafter Apprentice Interpretation
Rate: normal
Rhythm: sinus
*Critical Care Note
Total Time (30-74mins, 75-104mins- exclusive of procedures): Not Applicable
Data Reviewed
Review of Other/Old Records Reveals: Labs and Records
Source: patient
Patient Management
Discussion with other providers: Hospitalist and Aircraft Powertrain Repairer
Escalation/DeEscalation of care consider admission/obs:
Patient CT scan without any acute abnormalities. Sodium 124 which appears to be much lower than her baseline. It is possible her newly started Plavix and Paxil could be playing a role in her hyponatremia. Plan to admit to hospitalist service for
continued close monitoring. Hospitalist team is aware and accepts. They requested we reach out to nephrology for any further recommendations. Nephrology team was also notified
ED Attending Note
-
Portions of this chart may have been created with voice recognition software.� Occasional wrong word or��sound alike� substitutions may have occurred due to the inherent limitations of voice recognition software.
Discharge Plan
Departure
Patient Disposition: Admit
Date of Disposition: 05/28/24
Time of Disposition: 17:59
Presentation/result/management discussed w/ accepting MD/DO: Hospitalist
Discharge Problem:
Hyponatremia, Contusion of face, Accidental fall
Interventions
Interventions:
*Risk Screen - Suicide Last Done: 05/28/24 16:03
*General Assessment Last Done: 05/28/24 16:03
*Neglect/Abuse Screening Last Done: 05/28/24 16:03
*ED- Fall Risk Assessment Last Done: 05/28/24 17:52
*ED COVID-19 Vaccine History Last Done: 05/28/24 16:03
ED-Musculoskeletal Assessment Last Done: 05/28/24 19:07
ED- Neurological Assessment Last Done: 05/28/24 19:07
ED-Skin Assessment Last Done: 05/28/24 19:07
--- NOTE | 2024-05-28 18:01 | HPS.HSE ---
Family Physician
-
Family Physician: Pranay Dale
Chief Complaint
-
mechanical fall
History of Present Illness
Patient is a 83-year-old female with past medical history significant for essential hypertension, hyperlipidemia, Alzheimer's Disease, iron deficiency anemia, chronic back pain and chronic hyponatremia who presented to [facility] ED for evaluation of
mechanical fall. Patient reports that she thinks she had a 'clumsy moment' this morning and she tripped walking into the bathroom. Patients daughter at bedside to assist with HPI. Patient has been having a period of time everyday, late morning to
early afternoon, where she has a period of time of not feeling well, dizzy and generally weak. It tends to pass after a period of time and patient is able to go back to everyday activities without concern. Daughter reports it generally happens
around the same time everyday but has noticed it having a later shift than it started a while back. She has had work up with neuro and believes changes are chronic in nature. Patient denies any recent illness, confusion, dizziness, fever, chills,
cough, shortness of breath, chest pain, nausea, vomiting, constipation, diarrhea or urinary symptoms.
Medical History
Past Medical History
Past Medical History: Reports Other
Additional Past Medical History:
essential hypertension
hyperlipidemia
Alzheimer's Disease
iron deficiency anemia
chronic back pain
chronic hyponatremia
Past Surgical History: Reports Other
Additional Past Surgical History:
Cataracts
Left patella patella ORIF 06/30/2017
Multiple epidural injections
appendectomy
MOHS with Flap to right facial area
Social History
Tobacco: Former Smoker (quit 50+ years ago )
Alcohol: Occasional
Drug: None
Living: Assisted Living ([facility] )
Family History
Family History: Other (Father: CVA/TIA, HLD)
Allergies / Home Medications
Allergies reflects when Allergies were last updated in [facility].
Home Medications with original date entered in [facility]
Allergy/Medication List:
Allergies
Allergy/AdvReac Type Severity Reaction Status Date / Time
erythromycin base Allergy Hives Verified 05/28/24 16:02
Home Medications
atorvastatin 40 mg tablet 40 mg PO HS High cholesterol 04/13/20
labetalol 100 mg tablet 100 mg PO BID Blood pressure 04/13/20
tramadol 50 mg tablet 50 mg PO DAILYPRN PRN moderate pain 04/13/20
acetaminophen 500 mg tablet (Tylenol Extra Strength) 1,000 mg PO BID 05/28/24
calcium 600 mg (as carbonate)-vitamin D3 12.5 mcg (500 unit) capsule 2 cap PO DAILY 05/28/24
clopidogrel 75 mg tablet 75 mg PO DAILY 05/28/24
cyclobenzaprine 5 mg tablet 5 mg PO DAILYPRN PRN muscle spasms 05/28/24
ferrous sulfate 325 mg (65 mg iron) tablet 325 mg PO DAILY 05/28/24
therapeutic multivitamin 1 tab PO DAILY 05/28/24
Review of Systems
-
History Source: Patient and Family
Constitutional: Reports No Symptoms
EENT: Reports No Symptoms
Respiratory: Reports No Symptoms
Cardiac: Reports No Symptoms
Abdomen/GI: Reports No Symptoms
: Reports No Symptoms
Musculoskeletal: Reports No Symptoms
Skin: Reports No Symptoms
Neurological: Reports Dizzy
Endocrine: Reports No Symptoms
Hematologic/Lymphatic: Reports No Symptoms
Psych: Reports No Symptoms
Physical Exam
Vital Signs
Vital Signs
Temp Pulse Resp BP Pulse Ox
97.7 F 66 18 194/76 96
05/28/24 15:56 05/28/24 17:54 05/28/24 17:54 05/28/24 17:54 05/28/24 17:54
Physical Exam
General: Well Developed, Well Nourished, No Apparent Distress, Comfortable and Conversant
HEENT: NormoCephalic, Moist mucous membranes, Atraumatic, [place] Conjunctivae, Nose Appears Normal, Ears Appear Normal and Other (significant bruising over right periorbital area and right forehead extending to nasal bridge )
Respiratory: Clear and Non Labored Respirations
Cardiac: S1/S2 and Regular Rhythm; No Murmur, Rub or Gallop
Breast: Deferred by me
GI: Soft, Non Tender, Non Distended and Normal Bowel Sounds; No Organomegaly
Rectal: Deferred by Provider
Genito-urinary: Deferred by me
Musculoskeletal: No Clubbing, No Cyanosis and No Edema
Skin: IV/Catheter Site
Neuro: Awake, Alert and Nonfocal/grossly intact
Psych: Calm
Laboratory Results
-
05/28/24 16:18
05/28/24 16:18
Laboratory Results
Total Bilirubin 1.0 mg/dl (0.2-1.3) 05/28/24 16:18
AST 29 U/L (14-36) 05/28/24 16:18
ALT 24 U/L (0-35) 05/28/24 16:18
Alkaline Phosphatase 55 U/L (38-126) 05/28/24 16:18
Troponin I < 0.012 ng/ml 05/28/24 16:18
Data Reviewed
-
CT Scan: Report Reviewed by me
Medical Tests (Nuc Med, Echo, EKG etc): Report Reviewed by me (EKG: NORMAL SINUS RHYTHM LEFT AXIS DEVIATION POSSIBLE ANTERIOR INFARCT (CITED ON OR BEFORE 09-JUL-2023))
Lab Data: Labs Reviewed by me (Na+ 124, )
Impression/Plan
-
IMPRESSION/PLAN:
#acute on chronic hyponatremia
Na+ 124
- Admit to Telemetry
- Consult Nephrology
- urine studies pending
- check Na+ q8
- Fluid restriction 40oz
- Lasix 20mg PO now per Nephrology
#unwitnessed fall
#mechanical fall
C-Spine CT: No acute osseous abnormality.
Multilevel moderate/severe degenerative changes.
Facial bone CT: No evidence of acute facial bone fracture.
Small right frontal/periorbital soft tissue contusion.
Head CT: No acute intracranial abnormality noted.
- Consult PT
- orthostatic VS
#essential hypertension
- continue labetalol
#hyperlipidemia
- continue atorvastatin and clopidogrel
#iron deficiency anemia
hgb 13.1, hct 362
- continue ferrous sulfate
#chronic back pain
- continue cyclobenzaprine and tramadol
#Alzheimer's Disease
Code status: DNR
DVT prophylaxis: Lovenox Sq
[2024-05-28 18:28] LABS: Osmolality Serum 262 mOsm/kg (275-300)
[2024-05-28 18:32] LABS: Osmolality Urine 492 mOsm/kg (300-900)
[2024-05-28 18:34] LABS: Urine Albumin 1+ (Neg - Trace); Urine Bilirubin Negative (Negative); Urine Character Clear (Clear); Urine Color Yellow; Urine Glucose Negative (Negative); Urine Ketone Negative (Negative); Urine Leukocyte 1+ (Negative); Urine Nitrite Negative (Negative); Urine Occult Blood Negative (Negative); Urine Urobilinogen Negative (Neg - 1+)
[2024-05-28 18:41] LABS: Urine Squamous Cell 0-2 /LPF (Few)
[2024-05-28 18:42] LABS: Urine Red Blood Cell 0-2 /HPF (0-2)
--- NOTE | 2024-05-28 18:44 | W.PN.UPDATE ---
Update Note
Progress Note Update
I saw and examined the patient.
The [employer] MANAGER or PA's note was reviewed and I agree with the note.
Comment:
83-year-old female with past med history of hypertension, anemia, osteoporosis came to the hospital from [place] after a fall.� Denies any recollection of how she fell.� Denies any chest pain, shortness of breath.� Sodium 124 in the ED, appears acute
on chronic.� Check urine and serum studies.� Consult nephrology. Orthostatics twice daily. Fluids if okay with nephrology. Repeat sodium every 8 hours. Arms telemetry. To hands. PT evaluation. Hold Paxil. Give labetalol now.
GENERAL: Alert , in no apparent distress
HEAD: Right sided forehead and periorbital ecchymosis extending into the nasal bridge
CARDIAC: Regular rate and rhythm .
LUNGS: Clear breath sounds bilaterally, no acute respiratory distress
ABDOMEN: Soft, nontender, nondistended
NEUROLOGICAL: Alert and oriented
MUSCULOSKELETAL: No edema, well perfused.
PSYCH: Normal and appropriate interaction.
[2024-05-28 18:57] LABS: Urine Sodium 69 mmol/L (30-90)
[2024-05-28] MEDS: LASIX 20 MG PO (19:25)
[2024-05-28] MEDS: TRANDATE 100 MG PO (19:26)
--- NOTE | 2024-05-28 21:46 | PTCARENOTE ---
Pt transported from ED to 3W via stretcher. Pt was a pullover from stretcher to bed, pt AAOX3 aubree to make needs known. BP obtained and elevated (172/66). Pt oriented to room, call salazar within reach. Pt bed alarmed for safety, TELE #[id number] placed on pt.
[2024-05-28] MEDS: LIPITOR 40 MG PO (22:57)
[2024-05-29] VITALS (9 sets, daily range): BP systolic 106–198; BP diastolic 55–89; PULSE 66–76; O2SAT 96; BMI 18.4
[2024-05-29 01:08] LABS: Sodium 123 mmol/L (135-145)
[2024-05-29] MEDS: TRANDATE 100 MG PO ×2 (08:33→21:16)
[2024-05-29] MEDS: FEOSOL 325 MG PO (08:33)
[2024-05-29] MEDS: OSCAL 500 + D 500 MG PO (08:33)
[2024-05-29] MEDS: PLAVIX 75 MG PO (08:33)
[2024-05-29] MEDS: THERAGRAN 1 TABLET PO (08:33)
[2024-05-29 08:49] LABS: Hematocrit 35.4 % (37.0-47.0); Hemoglobin 13.3 g/dL (12.0-16.0); Mean Corp Hgb Conc. 37.6 g/dL (33.0-37.0); Mean Corpuscular Hgb 34.7 pg (27.0-31.0); Mean Corpuscular Volume 92.4 fL (81.0-99.0); Platelet Count 233 10^3/uL (130-400); Red Blood Cell Count 3.83 10^6/uL (4.20-5.40)
[2024-05-29] MEDS: PROCARDIA XL (EXTENDED RELEASE) 30 MG PO ×2 (09:12→21:15)
[2024-05-29] MEDS: APRESOLINE 10 MG IV (09:12)
[2024-05-29 09:14] LABS: Sodium 124 mmol/L (135-145)
[2024-05-29 09:23] LABS: Blood Urea Nitrogen 16 mg/dl (7-17); Calcium 8.7 mg/dl (8.4-10.2); Carbon Dioxide 25 mmol/L (22-30); Chloride 90 mmol/L (98-107); Estimated Creatinine Clearance 49 ml/min; Glucose 109 mg/dl (70-99); Potassium 3.9 mmol/L (3.5-5.1); Sodium 124 mmol/L (135-145); eGFR > 60.00
[2024-05-29] MEDS: ZOFRAN 4 MG IV (09:52)
[2024-05-29] MEDS: SAMSCA 15 MG PO (12:12)
--- NOTE | 2024-05-29 12:22 | W.CON.NEPH ---
Consultation
-
Date/Time Consultation Requested: 05/28/2024 at 7 PM
Date/Time Consultation Performed: May 29, 2024 at 11 AM
Requesting Provider: Dr. Vaughn
Performing Provider: Dr. Richmond
Reason for Consultation: Hyponatremia
Medical History
-
Chief Complaint: Hyponatremia
History of Present Illness:
83-year-old female with past medical history significant for essential hypertension, hyperlipidemia, Alzheimer's Disease, iron deficiency anemia, chronic back pain and chronic hyponatremia who presented to [facility] ED for evaluation of mechanical fall.
Found to have a sodium of 123 on admission
She has chronic hyponatremia follows our office. She had been on urea in the past without much improvement. She was to be on a fluid restriction outpatient but according to her daughter who helps provide history patient drinks water when she does
not feel well she feels like she is a dehydrated so difficult to ascertain how much she is drinking. She also has a very low protein diet.
Past Medical History
essential hypertension, hyperlipidemia, Alzheimer's Disease, iron deficiency anemia, chronic back pain and chronic hyponatremia
Social History
Tobacco: Non-Smoker
Alcohol: None
Family History
Family History: Not Pertinent
Allergies / Home Medications
Allergy/AdvReac Type Severity Reaction Status Date / Time
erythromycin base Allergy Hives Verified 05/28/24 16:02
�Medication �Instructions �Recorded �Confirmed �Type
atorvastatin 40 mg tablet 40 mg PO HS High cholesterol 04/13/20 05/28/24 History
labetalol 100 mg tablet 100 mg PO BID Blood pressure 04/13/20 05/28/24 History
tramadol 50 mg tablet 50 mg PO DAILYPRN PRN moderate pain 04/13/20 05/28/24 History
acetaminophen 500 mg tablet 1,000 mg PO BID PAIN,TEMP 05/28/24 05/28/24 History
(Tylenol Extra Strength)
calcium 600 mg (as 2 cap PO DAILY Supplement 05/28/24 05/28/24 History
carbonate)-vitamin D3 12.5 mcg
(500 unit) capsule
clopidogrel 75 mg tablet 75 mg PO DAILY Blood Clot 05/28/24 05/28/24 History
Prevention/Tx
cyclobenzaprine 5 mg tablet 5 mg PO DAILYPRN PRN muscle spasms 05/28/24 05/28/24 History
ferrous sulfate 325 mg (65 mg 325 mg PO DAILY Supplement 05/28/24 05/28/24 History
iron) tablet
therapeutic multivitamin 1 tab PO DAILY Supplement 05/28/24 05/28/24 History
Review of Systems
-
Overall weakness with some nausea
All other systems: Negative unless noted
Physical Exam
Vital Signs
Vital Signs
Temp Pulse Resp BP Pulse Ox
97.7 F 65 17 116/72 96
05/29/24 11:23 05/29/24 11:23 05/29/24 11:23 05/29/24 11:23 05/29/24 11:23
Lab Results
WBC 8.0 10^3/uL (4.8-10.8) 05/29/24 07:52
RBC 3.83 10^6/uL (4.20-5.40) L 05/29/24 07:52
Hgb 13.3 g/dL (12.0-16.0) 05/29/24 07:52
Hct 35.4 % (37.0-47.0) L 05/29/24 07:52
Plt Count 233 10^3/uL (130-400) 05/29/24 07:52
Potassium 3.9 mmol/L (3.5-5.1) 05/29/24 07:52
Chloride 90 mmol/L (98-107) L 05/29/24 07:52
Carbon Dioxide 25 mmol/L (22-30) 05/29/24 07:52
BUN 16 mg/dl (7-17) 05/29/24 07:52
Creatinine 0.6 mg/dL (0.6-1.0) 05/29/24 07:52
eGFR > 60.00 05/29/24 07:52
Glucose 109 mg/dl (70-99) H 05/29/24 07:52
Calcium 8.7 mg/dl (8.4-10.2) 05/29/24 07:52
Albumin 4.7 g/dl (3.5-5.0) 05/28/24 16:18
Physical Exam
General no acute distress
HEENT raccoon eyes
lungs clear to auscultation bilateral
heart regular S1-S2 positive
abdomen soft nontender positive bowel sounds
extremities no edema pulses present bilateral
Neurologically nonfocal alert and oriented x 3
Skin no lesions no abrasions no petechiae
Psych normal affect no bizarre behavior
Data Reviewed
-
CT Scan: Image Personally Visualized and interpreted
Labs: Labs Reviewed by me, Discussed with Patient and Discussed with Family
Assessment/Plan
-
83-year-old female with past medical history significant for essential hypertension, hyperlipidemia, Alzheimer's Disease, iron deficiency anemia, chronic back pain and chronic hyponatremia who presented to [facility] ED for evaluation of mechanical fall.
Sodium 123
Chronic hyponatremia
Impression.
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
Sodium 123 on admission
Hypertensive disorder�stable.
Alzheimer's disease.
Plan.
Samsca x 1
Fluid restrict
Discussed with the daughter about initiating sodium tablets as a possibility with or without a loop diuretic
Previously on urea which was expensive in the past.
Increase protein in her diet as discussed in detail the patient is forgetful and has difficulty with compliance at times.
Repeat labs this evening
--- NOTE | 2024-05-29 13:42 | CM ---
Patient seen bedside with daughter.
patient lives in independent living at [place].
Patient independent prior to admission.
No assistive devices on a regular basis, uses a walker occasionally if she is feeling weak.
Per daughter her mother can be forgetful, but able to answer questions appropriately.
JIMENES form reviewed with daughter and mother. Reviewed skilled rehab if patient is under observation status and private pay.
Copy provided.
Per daughter patient has had [facility] in the past and agreeable to [facility] if needed.
PCP: Dr Dale
Pharmacy: [facility] [address]
Plan: possible home with [facility]N vs skilled rehab needs.
--- NOTE | 2024-05-29 14:08 | W.PN.HOSP.TC ---
Today's Communication/Plan
-
change to inpatient
CT head w/o contrast
see note
Assessment / Plan
Assessment / Plan
#Acute on chronic hyponatremia
- Patient daughter reported patient having history of acute hyponatremia in the past with sodium dropping to 126
-Near past baseline of 132 on lab review
-Came in with sodium of 124
-Maintain on 40 ounce fluid restriction
-Urine electrolytes reviewed
-Not on any medication explaining hyponatremia
# Significant orthostatic hypotension
Significant supine hypertension
- Patient have large swings of systolic blood pressure from 200 lying down to 130 on standing up
- Compression stockings ordered
- Will try to lower supine BP little bit and will follow response.
#unwitnessed fall
#mechanical fall
-C-Spine CT: No acute osseous abnormality.
Multilevel moderate/severe degenerative changes.
-Facial bone CT: No evidence of acute facial bone fracture.
Small right frontal/periorbital soft tissue contusion.
-Head CT: No acute intracranial abnormality noted.
# Persistent nausea
- Do a repeat CT head to rule out any delayed brain bleed
- continue symptomatic care otherwise
#essential hypertension
- continue labetalol
#hyperlipidemia
- continue atorvastatin and clopidogrel
#iron deficiency anemia
hgb 13.1, hct 362
- continue ferrous sulfate
#chronic back pain
- continue cyclobenzaprine and tramadol
#Alzheimer's Disease
Code status: DNR
DVT prophylaxis: Lovenox Sq
Total time spent : 52 mins
Anticipated Discharge: 24 - 48 hours
Subjective/Interval History
-
Date of Service: May 29, 2024
Patient resting comfortably in bed
Denies having any headache
Minimal nausea no vomiting
Objective Data
-
Labs:
Laboratory Results
05/29/24 05/29/24
07:52 07:52
WBC 8.0
Hgb 13.3
Hct 35.4 L
Plt Count 233
Sodium 124 L 124 L
Potassium 3.9
Chloride 90 L
Carbon Dioxide 25
BUN 16
Creatinine 0.6
Glucose 109 H
Calcium 8.7
Vital Signs:
Vital Signs
Temp Pulse Resp BP Pulse Ox
97.7 F 65 17 116/72 96
05/29/24 11:23 05/29/24 11:23 05/29/24 11:23 05/29/24 11:23 05/29/24 11:23
I&O
05/28/24 05/29/24 05/30/24
06:59 06:59 06:59
Intake Total 460 / 460
Output Total 150 / 150
Balance 310 / 310
Review of Systems
-
Respiratory: Reports No Symptoms
Cardiac: Reports No Symptoms
Abdomen/GI: Reports Nausea
Physical Exam
-
General: No Apparent Distress and Comfortable
HEENT: Other (bilateral ); Negative Oxygen
Respiratory: Clear to Auscultation
Cardiac: Regular Rhythm and S1/S2; Negative Murmur or Rub
GI: Soft, Nontender and Nondistended
Musculoskeletal: No Edema
Neuro: Awake, Alert, Oriented, No Motor Deficits and Nonfocal/Grossly Intact
Psych: Calm
[2024-05-29] MEDS: LOVENOX 30 MG SC (17:41)
[2024-05-29] MEDS: LIPITOR 40 MG PO (21:16)
[2024-05-29 21:23] LABS: Sodium 122 mmol/L (135-145)
[2024-05-30] VITALS (8 sets, daily range): BP systolic 96–171; BP diastolic 49–93; PULSE 72–93
--- NOTE | 2024-05-30 04:17 | PTCARENOTE ---
Patient confused with history of Alzheimer's. Patient consistently setting off bed alarm and taking off patient monitor. Patient educated multiple times on importance of utilizing call light when getting up and keeping patient monitor on. This
RN has frequently been reorienting this patient throughout the night. Plan of care ongoing.
[2024-05-30 06:41] LABS: Hematocrit 34.1 % (37.0-47.0); Hemoglobin 12.8 g/dL (12.0-16.0); Mean Corp Hgb Conc. 37.5 g/dL (33.0-37.0); Mean Corpuscular Hgb 34.7 pg (27.0-31.0); Mean Corpuscular Volume 92.4 fL (81.0-99.0); Mean Platelet Volume 9.1 fL (7.4-10.4); Platelet Count 225 10^3/uL (130-400); Red Blood Cell Count 3.69 10^6/uL (4.20-5.40); White Blood Cell Count 6.4 10^3/uL (4.8-10.8)
[2024-05-30] MEDS: PROCARDIA XL (EXTENDED RELEASE) 30 MG PO ×2 (09:13→20:10)
[2024-05-30] MEDS: TRANDATE 100 MG PO (09:14)
[2024-05-30] MEDS: OSCAL 500 + D 500 MG PO (09:14)
[2024-05-30] MEDS: THERAGRAN 1 TABLET PO (09:14)
[2024-05-30] MEDS: PLAVIX 75 MG PO (09:14)
[2024-05-30] MEDS: FEOSOL 325 MG PO (09:14)
[2024-05-30 09:38] LABS: Blood Urea Nitrogen 23 mg/dl (7-17); Calcium 9.1 mg/dl (8.4-10.2); Carbon Dioxide 21 mmol/L (22-30); Chloride 91 mmol/L (98-107); Estimated Creatinine Clearance 42 ml/min; Glucose 111 mg/dl (70-99); Potassium 4.1 mmol/L (3.5-5.1); Sodium 123 mmol/L (135-145); eGFR > 60.00
[2024-05-30] MEDS: SODIUM CHLORIDE 3% 250 IV (10:16)
--- NOTE | 2024-05-30 11:48 | CM ---
Patient seen at bedside
Spoke with daughter Shirley & updated
PT rec SNF - prefers [facility]
no pre-auth needed
PLAN: SNF, pending bed availability
[2024-05-30 12:02] LABS: Cortisol, Random 13.2 ug/dl; TSH 1.25 uIU/ml (0.47-4.68)
--- NOTE | 2024-05-30 12:23 | W.PN.HOSP.TC ---
Today's Communication/Plan
-
see note
Assessment / Plan
Assessment / Plan
#Acute on chronic hyponatremia
- Patient daughter reported patient having history of acute hyponatremia in the past with sodium dropping to 126
-Near past baseline of 132 on lab review
-Came in with sodium of 124
-Maintain on 40 ounce fluid restriction
-Urine electrolytes reviewed
-Not on any medication explaining hyponatremia
-Got Samsca 15 mg yesterday without much improvement, discussed with nephrology and patient is planned to get 3% normal saline today
# Significant orthostatic hypotension
Significant supine hypertension
- Patient have large swings of systolic blood pressure from 200 lying down to 130 on standing up
- Compression stockings ordered
- Patient has supine hypertension is improved with addition of Procardia although continued to have significant orthostasis. Dose of labetalol decreasing to 50 mg twice daily as have some bradycardia, asymptomatic.
#unwitnessed fall
#mechanical fall
-C-Spine CT: No acute osseous abnormality.
Multilevel moderate/severe degenerative changes.
-Facial bone CT: No evidence of acute facial bone fracture.
Small right frontal/periorbital soft tissue contusion.
-Head CT: No acute intracranial abnormality noted.
# Nausea w/o vomiting -resolve
-Was having some right flank pain as well which has resolved
-CT head repeat did not show any changes
-continue monitoring
# Dementia with behavioral changes
- Some reported agitation overnight, likely from the hyponatremia
- Zyprexa added for symptomatic
#essential hypertension
- continue labetalol
#hyperlipidemia
- continue atorvastatin and clopidogrel
#iron deficiency anemia
hgb 13.1, hct 362
- continue ferrous sulfate
#chronic back pain
- continue cyclobenzaprine and tramadol
#Alzheimer's Disease
Code status: DNR
DVT prophylaxis: Lovenox Sq
Total time spent : 53 mins
Care plan discussed with patient daughter at bedside.
Anticipated Discharge: 24 - 48 hours
Subjective/Interval History
-
Date of Service: May 30, 2024
Patient denies of having any issues right now
Reported agitation by nurse
Patient had some nausea last evening, not complaining any currently
No dizziness/syncope overnight
Objective Data
-
Labs:
Laboratory Results
05/30/24
06:28
WBC 6.4
Hgb 12.8
Hct 34.1 L
Plt Count 225
Sodium 123 L
Potassium 4.1
Chloride 91 L
Carbon Dioxide 21 L
BUN 23 H
Creatinine 0.7
Glucose 111 H
Calcium 9.1
Vital Signs:
Vital Signs
Temp Pulse Resp BP Pulse Ox
97.7 F 68 17 101/49 97
05/30/24 11:05 05/30/24 11:05 05/30/24 11:05 05/30/24 11:05 05/30/24 11:05
I&O
05/29/24 05/30/24 05/31/24
06:59 06:59 06:59
Intake Total 460 / 460 360 / 360
Output Total 150 / 150
Balance 310 / 310 360 / 360
Review of Systems
-
Unable to obtain full review of systems at this time due to: Dementia
Physical Exam
-
General: No Apparent Distress and Comfortable
HEENT: Other (bilateral ); Negative Oxygen
Respiratory: Clear to Auscultation
Cardiac: Regular Rhythm and S1/S2; Negative Murmur or Rub
GI: Soft, Nontender and Nondistended
Musculoskeletal: No Edema
Neuro: Awake, Alert, Oriented, No Motor Deficits and Nonfocal/Grossly Intact
Psych: Calm
--- NOTE | 2024-05-30 14:56 | W.PN.NEPH.PH ---
Today's Communication / Plan
-
Hypertonic saline
Assessment/Plan
-
83-year-old female with past medical history significant for essential hypertension, hyperlipidemia, Alzheimer's Disease, iron deficiency anemia, chronic back pain and chronic hyponatremia who presented to [facility] ED for evaluation of mechanical fall.
Sodium 123
Chronic hyponatremia
Impression.
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
Sodium 123 on admission
Hypertensive disorder�stable.
Alzheimer's disease.
Plan.
TSH and cortisol within normal limits
Fluid restrict
Discussed with the daughter about initiating sodium tablets as a possibility with or without a loop diuretic
Previously on urea which was expensive in the past.
Increase protein in her diet as discussed in detail the patient is forgetful and has difficulty with compliance at times.
Did not respond to Samsca yesterday
Started 3% saline
Repeat labs this evening
-
-
Date of Service: May 30, 2024
CC / HPI / ROS
-
Chief Complaint:
Weakness
History of Present Illness:
Acute on chronic hyponatremia 123
Review of Systems:
Weakness no chest pain or shortness of breath
Labs
-
Labs:
WBC 6.4 10^3/uL (4.8-10.8) 05/30/24 06:28
RBC 3.69 10^6/uL (4.20-5.40) L 05/30/24 06:28
Hgb 12.8 g/dL (12.0-16.0) 05/30/24 06:28
Hct 34.1 % (37.0-47.0) L 05/30/24 06:28
Plt Count 225 10^3/uL (130-400) 05/30/24 06:28
eGFR > 60.00 05/30/24 06:28
Albumin 4.7 g/dl (3.5-5.0) 05/28/24 16:18
Physical Exam
-
Vital Signs:
Vital Signs
Temp Pulse Resp BP Pulse Ox
97.7 F 68 17 101/49 97
05/30/24 11:05 05/30/24 11:05 05/30/24 11:05 05/30/24 11:05 05/30/24 11:05
Respiratory:: Bilateral: CTA
Lung Excursion:: Normal
Abdomen:: Soft
Bowel Sounds:: Normal
Extremity Edema:: None: Bilateral:
[2024-05-30 16:52] LABS: Blood Urea Nitrogen 34 mg/dl (7-17); Calcium 9.9 mg/dl (8.4-10.2); Carbon Dioxide 22 mmol/L (22-30); Chloride 91 mmol/L (98-107); Estimated Creatinine Clearance 37 ml/min; Glucose 113 mg/dl (70-99); Potassium 4.5 mmol/L (3.5-5.1); Sodium 126 mmol/L (135-145); eGFR > 60.00
[2024-05-30] MEDS: LOVENOX 30 MG SC (17:11)
--- NOTE | 2024-05-30 19:47 | PTCARENOTE ---
Patient sitting in chair, obtained orthos sitting and standing at this time. RN aware.
[2024-05-30] MEDS: TRANDATE 50 MG PO (20:10)
[2024-05-30 21:17] LABS: Blood Urea Nitrogen 35 mg/dl (7-17); Calcium 9.5 mg/dl (8.4-10.2); Carbon Dioxide 20 mmol/L (22-30); Chloride 92 mmol/L (98-107); Estimated Creatinine Clearance 42 ml/min; Glucose 112 mg/dl (70-99); Potassium 4.2 mmol/L (3.5-5.1); Sodium 124 mmol/L (135-145); eGFR > 60.00
[2024-05-30] MEDS: LIPITOR 40 MG PO (22:35)
[2024-05-30] MEDS: ZYPREXA 5 MG PO (22:35)
[2024-05-31] VITALS (7 sets, daily range): BP systolic 91–183; BP diastolic 50–77; PULSE 77–106; O2SAT 97
[2024-05-31 08:03] LABS: Blood Urea Nitrogen 25 mg/dl (7-17); Calcium 8.9 mg/dl (8.4-10.2); Carbon Dioxide 20 mmol/L (22-30); Chloride 98 mmol/L (98-107); Estimated Creatinine Clearance 49 ml/min; Glucose 123 mg/dl (70-99); Sodium 130 mmol/L (135-145); eGFR > 60.00
--- NOTE | 2024-05-31 08:39 | CM ---
[facility] referral in [facility]
Per [facility] from [facility] can accept patient, bed available 06/01 if patient ready for discharge
PLAN: [facility], when medically stable
[2024-05-31] MEDS: PROCARDIA XL (EXTENDED RELEASE) 30 MG PO ×2 (08:50→20:54)
[2024-05-31] MEDS: OSCAL 500 + D 500 MG PO (08:50)
[2024-05-31] MEDS: FEOSOL 325 MG PO (08:50)
[2024-05-31] MEDS: PLAVIX 75 MG PO (08:50)
[2024-05-31] MEDS: THERAGRAN 1 TABLET PO (08:51)
[2024-05-31] MEDS: ULTRAM 50 MG PO (08:58)
[2024-05-31] MEDS: TRANDATE PO (09:00)
[2024-05-31 10:15] LABS: Hematocrit 35.4 % (37.0-47.0); Mean Corp Hgb Conc. 36.7 g/dL (33.0-37.0); Mean Corpuscular Hgb 34.5 pg (27.0-31.0); Mean Corpuscular Volume 93.9 fL (81.0-99.0); Platelet Count 192 10^3/uL (130-400); Red Blood Cell Count 3.77 10^6/uL (4.20-5.40); Red Cell Dist. Width 11.5 % (11.5-14.5); White Blood Cell Count 5.6 10^3/uL (4.8-10.8)
--- NOTE | 2024-05-31 12:41 | W.PN.NEPH.PH ---
Today's Communication / Plan
-
Salt tablets
Assessment/Plan
-
83-year-old female with past medical history significant for essential hypertension, hyperlipidemia, Alzheimer's Disease, iron deficiency anemia, chronic back pain and chronic hyponatremia who presented to [facility] ED for evaluation of mechanical fall.
Sodium 123
Chronic hyponatremia
Impression.
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
Sodium 123 on admission
Hypertensive disorder�stable.
Alzheimer's disease.
Plan.
TSH and cortisol within normal limits
Fluid restrict
Previously on urea which was expensive in the past.
Increase protein in her diet as discussed in detail the patient is forgetful and has difficulty with compliance at times.
Responded to 3% saline most recent sodium 130
Patient with poor p.o. intake as discussed with daughter again today
Will start on salt tablets plus or minus loop diuretic
-
-
Date of Service: May 31, 2024
CC / HPI / ROS
-
Chief Complaint:
Weakness
History of Present Illness:
Acute on chronic hyponatremia 123
Review of Systems:
Weakness no chest pain or shortness of breath
Labs
-
Labs:
WBC 5.6 10^3/uL (4.8-10.8) 05/31/24 08:46
RBC 3.77 10^6/uL (4.20-5.40) L 05/31/24 08:46
Hgb 13.0 g/dL (12.0-16.0) 05/31/24 08:46
Hct 35.4 % (37.0-47.0) L 05/31/24 08:46
Plt Count 192 10^3/uL (130-400) 05/31/24 08:46
Sodium 130 mmol/L (135-145) L 05/31/24 06:40
Potassium 4.0 mmol/L (3.5-5.1) 05/31/24 06:40
Chloride 98 mmol/L (98-107) 05/31/24 06:40
Carbon Dioxide 20 mmol/L (22-30) L 05/31/24 06:40
BUN 25 mg/dl (7-17) H 05/31/24 06:40
Creatinine 0.5 mg/dL (0.6-1.0) L 05/31/24 06:40
eGFR > 60.00 05/31/24 06:40
Glucose 123 mg/dl (70-99) H 05/31/24 06:40
Calcium 8.9 mg/dl (8.4-10.2) 05/31/24 06:40
Albumin 4.7 g/dl (3.5-5.0) 05/28/24 16:18
Physical Exam
-
Vital Signs:
Vital Signs
Temp Pulse Resp BP Pulse Ox
98 F 67 14 91/55 99
05/31/24 11:10 05/31/24 11:10 05/31/24 11:10 05/31/24 11:10 05/31/24 11:10
Respiratory:: Bilateral: CTA
Lung Excursion:: Normal
Abdomen:: Soft
Bowel Sounds:: Normal
Extremity Edema:: None: Bilateral:
--- NOTE | 2024-05-31 13:09 | W.PN.HOSP.TC ---
Today's Communication/Plan
-
see note
Assessment / Plan
Assessment / Plan
#Acute on chronic hyponatremia
- Patient daughter reported patient having history of acute hyponatremia in the past with sodium dropping to 126
-Near past baseline of 132 on lab review
-Came in with sodium of 124
-Maintain on 40 ounce fluid restriction
-Urine electrolytes reviewed
-Not on any medication explaining hyponatremia
- S/p Samsca 15 mg and followed by 3% NS. Sodium 130 today
# Significant orthostatic hypotension
Significant supine hypertension
- Patient have large swings of systolic blood pressure from 200 lying down to 130 on standing up
- Compression stockings ordered.
- Labetalol has been discontinued. on Procardia xl 30mg/bid
- Patient with significant labile HTN with SBP swinging from 100s to 200 range.
- cortisol/tsh wnl
# Blurred vision
- mainly in right eye, stated of being there for last 2 days
- Denies scotoma/visual cut/not painful
- carotid doppler in oct 24 was normal
- Continue monitoring for any acute changes, will require ophthalmology follow-up post discharge
#unwitnessed fall
#mechanical fall
-C-Spine CT: No acute osseous abnormality.
Multilevel moderate/severe degenerative changes.
-Facial bone CT: No evidence of acute facial bone fracture.
Small right frontal/periorbital soft tissue contusion.
-Head CT: No acute intracranial abnormality noted.
# Nausea w/o vomiting -resolved
-Was having some right flank pain as well which has resolved
-CT head repeat did not show any changes
-continue monitoring
# Dementia with behavioral changes
- Some reported agitation overnight, likely from the hyponatremia
- Zyprexa added for help with night time agitation
#essential hypertension
- continue labetalol
#hyperlipidemia
- continue atorvastatin and clopidogrel
#iron deficiency anemia
hgb 13.1, hct 362
- continue ferrous sulfate
#chronic back pain
- continue cyclobenzaprine and tramadol
Code status: DNR
DVT prophylaxis: Lovenox Sq
Patient continues to have very elevated blood pressure with supine hypertension and orthostatic hypotension. Remains significant challenge to control both higher and lower end of blood pressure
Total time spent : 52 mins
Anticipated Discharge: 24 - 48 hours
Subjective/Interval History
-
Date of Service: May 31, 2024
Patient complaining some visual blurriness,
denies any scotoma/visual field cuts
No motor deficits
Continues to have dizziness
Objective Data
-
Labs:
Laboratory Results
05/31/24 05/31/24
06:40 08:46
WBC Cancelled 5.6
Hgb Cancelled 13.0
Hct Cancelled 35.4 L
Plt Count Cancelled 192
Sodium 130 L
Potassium 4.0
Chloride 98
Carbon Dioxide 20 L
BUN 25 H
Creatinine 0.5 L
Glucose 123 H
Calcium 8.9
Vital Signs:
Vital Signs
Temp Pulse Resp BP Pulse Ox
98 F 67 14 91/55 99
05/31/24 11:10 05/31/24 11:10 05/31/24 11:10 05/31/24 11:10 05/31/24 11:10
I&O
05/30/24 05/31/24 06/01/24
06:59 06:59 06:59
Intake Total 360 / 360 840 / 840
Balance 360 / 360 840 / 840
Review of Systems
-
Unable to obtain full review of systems at this time due to: Acuity and Other (Limited ROS as above)
Physical Exam
-
HEENT: Other (bilateral periorbital echymosis); Negative Oxygen
Respiratory: Clear to Auscultation
Cardiac: Regular Rhythm and S1/S2; Negative Murmur or Rub
GI: Soft, Nontender and Nondistended
Musculoskeletal: No Edema
Neuro: Awake, Alert, Oriented, No Motor Deficits and Nonfocal/Grossly Intact
Psych: Calm
--- NOTE | 2024-05-31 13:37 | PN.CDI ---
CDI
- -
CDI:
Physician Documentation Request
Admit Date: 05/29/24 14:05
Dear Doctor Roderick,
Please review the following and provide your response in the progress notes.
Clinical Indicators:
Height: 5 ft 2 in
Weight:100 lb 9.6 oz
BMI:18.4
Other Clinical Notes:Nutrition consult 05/29, ' CBW: 100 lbs 9.6 oz BMI 18.4 underweight range (05/29). ...'
If possible, please provide an associated diagnosis related to the abnormal BMI, such as:
BMI < or = to 19
Underweight
Cachectic
- Other ( please specify)
Use of terms such as suspected, likely, concern for, or probable (associated with a specific diagnosis that is being evaluated, monitored, or treated as if it exists) are acceptable and can be coded in the inpatient setting, when documented at the
time of discharge.
Thank you,
Lexie Kruger RN
CDI Specialist
[place] Text
Please use your independent medical judgment in providing your response.
[2024-05-31] MEDS: SODIUM CHLORIDE 2 GRAM PO ×2 (16:38→21:00)
[2024-05-31] MEDS: TYLENOL 650 MG PO (17:00)
[2024-05-31] MEDS: LOVENOX 30 MG SC (17:01)
--- NOTE | 2024-05-31 17:54 | PTCARENOTE ---
pt reported this AM that she was having difficulty focusing her vision and was seeing double. Pt noted the the L eye was worse then the R. mini neuro exam completed by this nurse with no deficits noted. Dr. Vaughn notified via tt. no further
interventions ordered at this time
[2024-05-31] MEDS: ZYPREXA 5 MG PO (21:00)
[2024-05-31] MEDS: LIPITOR 40 MG PO (21:00)
[2024-06-01] VITALS (9 sets, daily range): BP systolic 126–197; BP diastolic 65–92; PULSE 93–113
[2024-06-01 07:05] LABS: Hematocrit 35.2 % (37.0-47.0); Hemoglobin 12.7 g/dL (12.0-16.0); Mean Corp Hgb Conc. 36.1 g/dL (33.0-37.0); Mean Corpuscular Hgb 33.8 pg (27.0-31.0); Mean Corpuscular Volume 93.6 fL (81.0-99.0); Platelet Count 233 10^3/uL (130-400); Red Blood Cell Count 3.76 10^6/uL (4.20-5.40); Red Cell Dist. Width 11.6 % (11.5-14.5); White Blood Cell Count 4.4 10^3/uL (4.8-10.8)
[2024-06-01 07:28] LABS: Blood Urea Nitrogen 29 mg/dl (7-17); Calcium 8.9 mg/dl (8.4-10.2); Carbon Dioxide 25 mmol/L (22-30); Chloride 99 mmol/L (98-107); Estimated Creatinine Clearance 49 ml/min; Glucose 96 mg/dl (70-99); Potassium 3.8 mmol/L (3.5-5.1); Sodium 131 mmol/L (135-145); eGFR > 60.00
[2024-06-01] MEDS: PLAVIX 75 MG PO (08:08)
[2024-06-01] MEDS: THERAGRAN 1 TABLET PO (08:08)
[2024-06-01] MEDS: SODIUM CHLORIDE 2 GRAM PO ×3 (08:08→21:53)
[2024-06-01] MEDS: OSCAL 500 + D 500 MG PO (08:08)
[2024-06-01] MEDS: FEOSOL 325 MG PO (08:08)
[2024-06-01] MEDS: PROCARDIA XL (EXTENDED RELEASE) 30 MG PO ×2 (08:08→20:38)
[2024-06-01] MEDS: FLORINEF 0.1 MG PO (10:37)
--- NOTE | 2024-06-01 11:44 | W.PN.NEPH.PH ---
Today's Communication / Plan
-
Continue salt tab
Assessment/Plan
-
83-year-old female with past medical history significant for essential hypertension, hyperlipidemia, Alzheimer's Disease, iron deficiency anemia, chronic back pain and chronic hyponatremia who presented to [facility] ED for evaluation of mechanical fall.
Sodium 123
Chronic hyponatremia
Impression.
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
Sodium 123 on admission
Hypertensive disorder�stable.
Alzheimer's disease.
Plan.
TSH and cortisol within normal limits
Fluid restrict
Previously on urea which was expensive in the past.
Increase protein in her diet as discussed in detail the patient is forgetful and has difficulty with compliance at times.
Responded to 3% saline most recent sodium 130
Patient with poor p.o. intake as discussed with daughter again today
Started on salt tablets plus or minus loop diuretic= tolerating salt tablets high dose 2 g 3 times daily/hesitant to add a loop diuretic as this is the mainstay of therapy on high sodium tablets but I am concerned about her blood pressure drops and
orthostatic.
Fludrocortisone started by primary team will see how she responds
-
-
Date of Service: June 01, 2024
CC / HPI / ROS
-
Chief Complaint:
Weakness
History of Present Illness:
Acute on chronic hyponatremia 123
Review of Systems:
Weakness no chest pain or shortness of breath
Remains orthostatic
Labs
-
Labs:
WBC 4.4 10^3/uL (4.8-10.8) L 06/01/24 06:42
RBC 3.76 10^6/uL (4.20-5.40) L 06/01/24 06:42
Hgb 12.7 g/dL (12.0-16.0) 06/01/24 06:42
Hct 35.2 % (37.0-47.0) L 06/01/24 06:42
Plt Count 233 10^3/uL (130-400) D 06/01/24 06:42
Sodium 131 mmol/L (135-145) L 06/01/24 06:42
Potassium 3.8 mmol/L (3.5-5.1) 06/01/24 06:42
Chloride 99 mmol/L (98-107) 06/01/24 06:42
Carbon Dioxide 25 mmol/L (22-30) 06/01/24 06:42
BUN 29 mg/dl (7-17) H 06/01/24 06:42
Creatinine 0.5 mg/dL (0.6-1.0) L 06/01/24 06:42
eGFR > 60.00 06/01/24 06:42
Glucose 96 mg/dl (70-99) 06/01/24 06:42
Calcium 8.9 mg/dl (8.4-10.2) 06/01/24 06:42
Albumin 4.7 g/dl (3.5-5.0) 05/28/24 16:18
Physical Exam
-
Vital Signs:
Vital Signs
Temp Pulse Resp BP Pulse Ox
98.2 F 93 16 130/65 98
06/01/24 11:39 06/01/24 11:39 06/01/24 11:39 06/01/24 11:39 06/01/24 11:39
Respiratory:: Bilateral: CTA
Lung Excursion:: Normal
Abdomen:: Soft
Bowel Sounds:: Normal
Extremity Edema:: None: Bilateral:
--- NOTE | 2024-06-01 12:26 | PN.CDI ---
CDI
- -
CDI:
Physician Documentation Request
Admit Date: 05/29/24 14:05
Dear Doctor Roderick,
Please review the following and provide your response in the progress notes.
Clinical Indicators:
Pt admitted with Acute on Chronic Hyponatremia / SIADH /Orthostatic hypotension
Progress notes 05/30&05/31,' Significant orthostatic hypotension...Patient have large swings of systolic blood pressure from 200 lying down to 130 on standing up Compression stockings ordered.'
Nephrology progress note 06/01, ' ...I am concerned about her blood pressure drops and orthostatic.Fludrocortisone started by primary team will see how she responds...'
Please provide in your note the suspected etiology of the documented Orthostatic Hypotension:
Neurogenic Orthostatic Hypotension
Orthostatic Hypotension only
Other ( please specify)
Use of terms such as suspected, likely, concern for, or probable (associated with a specific diagnosis that is being evaluated, monitored, or treated as if it exists) are acceptable and can be coded in the inpatient setting, when documented at the
time of discharge.
Thank you,
Lexie Kruger RN
CDI Specialist
[place] Text
Please use your independent medical judgment in providing your response.
--- NOTE | 2024-06-01 12:33 | CM ---
Patient seen at bedside with dtr Shirley
[facility]
Called [facility] & updated
PLAN: SNF, pending bed availability when medically stable
--- NOTE | 2024-06-01 13:09 | W.PN.HOSP.TC ---
Addendum entered and electronically signed by Brigido Vaughn MD 06/01/24 14:20:
Add on to diagnosis list :
Cachectic
Orthostatic hypotension only
Original Note:
Today's Communication/Plan
-
see note
Assessment / Plan
Assessment / Plan
#Acute on chronic hyponatremia
- Patient daughter reported patient having history of acute hyponatremia in the past with sodium dropping to 126
-Near past baseline of 132 on lab review
-Came in with sodium of 124
-Maintain on 40 ounce fluid restriction
-Urine electrolytes reviewed
-Not on any medication explaining hyponatremia
- S/p Samsca 15 mg and followed by 3% NS. Sodium 131 today
# Significant orthostatic hypotension
Significant supine hypertension
- Patient have large swings of systolic blood pressure from 200 lying down to 130 on standing up
- Labetalol has been discontinued. on Procardia xl 30mg/bid
- Patient with significant labile HTN with SBP swinging from 100s to 200 range.
- cortisol/tsh wnl
- Compression stockings changed to thigh-high.
- Fludrocortisone 0.1 mg daily started
# Blurred vision
- mainly in right eye, stated of being there for last 2 days
- Denies scotoma/visual cut/not painful
- carotid doppler in nov 24 was normal
- Continue monitoring for any acute changes, will require ophthalmology follow-up post discharge
#unwitnessed fall
#mechanical fall
-C-Spine CT: No acute osseous abnormality.
Multilevel moderate/severe degenerative changes.
-Facial bone CT: No evidence of acute facial bone fracture.
Small right frontal/periorbital soft tissue contusion.
-Head CT: No acute intracranial abnormality noted.
# Nausea w/o vomiting -resolved
-Was having some right flank pain as well which has resolved
-CT head repeat did not show any changes
-continue monitoring
# Dementia with behavioral changes
- Some reported agitation overnight, likely from the hyponatremia
- Zyprexa added for help with night time agitation
#essential hypertension
- continue labetalol
#hyperlipidemia
- continue atorvastatin and clopidogrel
#iron deficiency anemia
hgb 13.1, hct 362
- continue ferrous sulfate
#chronic back pain
- continue cyclobenzaprine and tramadol
Code status: DNR
DVT prophylaxis: Lovenox Sq
Patient continues to have very elevated blood pressure with supine hypertension and orthostatic hypotension. Remains significant challenge to control both higher and lower end of blood pressure
Anticipated Discharge: 24 - 48 hours
Subjective/Interval History
-
Date of Service: June 01, 2024
Continues to remain orthostatic, feeling dizzy no syncope reported
Right vision blurriness is improved
No other reported problems overnight
Objective Data
-
Labs:
Laboratory Results
06/01/24
06:42
WBC 4.4 L
Hgb 12.7
Hct 35.2 L
Plt Count 233 D
Sodium 131 L
Potassium 3.8
Chloride 99
Carbon Dioxide 25
BUN 29 H
Creatinine 0.5 L
Glucose 96
Calcium 8.9
Vital Signs:
Vital Signs
Temp Pulse Resp BP Pulse Ox
98.2 F 93 16 130/65 98
06/01/24 11:39 06/01/24 11:39 06/01/24 11:39 06/01/24 11:39 06/01/24 11:39
I&O
05/31/24 06/01/24 06/02/24
06:59 06:59 06:59
Intake Total 840 / 840 720 / 720
Balance 840 / 840 720 / 720
Review of Systems
-
Respiratory: Reports No Symptoms
Cardiac: Reports No Symptoms
Abdomen/GI: Reports No Symptoms
Physical Exam
-
HEENT: Other (bilateral periorbital echymosis); Negative Oxygen
Respiratory: Clear to Auscultation
Cardiac: Regular Rhythm and S1/S2; Negative Murmur or Rub
GI: Soft, Nontender and Nondistended
Musculoskeletal: No Edema
Neuro: Awake, Alert, Oriented, No Motor Deficits and Nonfocal/Grossly Intact
Psych: Calm
[2024-06-01] MEDS: LOVENOX 30 MG SC (17:05)
[2024-06-01] MEDS: LIPITOR 40 MG PO (21:53)
[2024-06-01] MEDS: ZYPREXA 5 MG PO (21:53)
[2024-06-01] MEDS: APRESOLINE 10 MG IV (22:02)
[2024-06-02] VITALS (7 sets, daily range): BP systolic 120–178; BP diastolic 68–91; PULSE 93–125
[2024-06-02] MEDS: APRESOLINE 10 MG IV ×2 (03:18→16:17)
[2024-06-02] MEDS: FEOSOL 325 MG PO (08:46)
[2024-06-02] MEDS: PLAVIX 75 MG PO (08:46)
[2024-06-02] MEDS: FLORINEF 0.05 MG PO (08:46)
[2024-06-02] MEDS: SODIUM CHLORIDE 2 GRAM PO (08:46)
[2024-06-02] MEDS: OSCAL 500 + D 500 MG PO (08:47)
[2024-06-02] MEDS: PROCARDIA XL (EXTENDED RELEASE) 30 MG PO ×2 (08:47→21:07)
[2024-06-02] MEDS: THERAGRAN 1 TABLET PO (08:47)
[2024-06-02] MEDS: FLORINEF PO (09:00)
--- NOTE | 2024-06-02 11:52 | PTCARENOTE ---
For orthostatic blood pressure, had patient sit and stand for 4 minutes before taking blood pressure.
--- NOTE | 2024-06-02 12:27 | CM ---
Patient seen at bedside.
Updated [facility] at [facility]
Referral in [facility]
states if dc over weekend to call her as they are able to take
PLAN: [facility] when medically stable
Report #: [phone] Fax #: [phone]
--- NOTE | 2024-06-02 12:39 | W.PN.NEPH.PH ---
Today's Communication / Plan
-
see plan
Assessment/Plan
-
83-year-old female with past medical history significant for essential hypertension, hyperlipidemia, Alzheimer's Disease, iron deficiency anemia, chronic back pain and chronic hyponatremia who presented to [facility] ED for evaluation of mechanical fall.
Sodium 123
Chronic hyponatremia
Impression.
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
Sodium 123 on admission
Hypertensive disorder�stable.
Alzheimer's disease.
Plan.
pending labs today
sodium so far is stable
TSH and cortisol within normal limits
Fluid restrict still
improving orthostatics on florinef, will decrease salt load 1gm TID
encourage solute intake
d/w primary
Previously on urea which was expensive in the past.
-
-
Date of Service: June 02, 2024
CC / HPI / ROS
-
Chief Complaint:
Weakness
History of Present Illness:
Acute on chronic hyponatremia 123
last sodium 131 on 06/01
orthostatic better today
Review of Systems:
still with dizziness
no cp or sob
Labs
-
Labs:
WBC 4.4 10^3/uL (4.8-10.8) L 06/01/24 06:42
RBC 3.76 10^6/uL (4.20-5.40) L 06/01/24 06:42
Hgb 12.7 g/dL (12.0-16.0) 06/01/24 06:42
Hct 35.2 % (37.0-47.0) L 06/01/24 06:42
Plt Count 233 10^3/uL (130-400) D 06/01/24 06:42
eGFR > 60.00 06/01/24 06:42
Albumin 4.7 g/dl (3.5-5.0) 05/28/24 16:18
Physical Exam
-
Vital Signs:
Vital Signs
Temp Pulse Resp BP Pulse Ox
98.8 F 93 16 146/69 95
06/02/24 11:10 06/02/24 11:10 06/02/24 11:10 06/02/24 11:10 06/02/24 11:10
Cardiovascular:: Regular rate and rhythm (murmur)
Respiratory:: Bilateral: CTA
Lung Excursion:: Normal
Abdomen:: Soft
Bowel Sounds:: Normal
Extremity Edema:: None: Bilateral:
Paulino Catheter: No
--- NOTE | 2024-06-02 12:46 | W.PN.HOSP.TC ---
Today's Communication/Plan
-
see note
Assessment / Plan
Assessment / Plan
#Acute on chronic hyponatremia
- Patient daughter reported patient having history of acute hyponatremia in the past with sodium dropping to 126
-Near past baseline of 132 on lab review
-Came in with sodium of 124
-Maintain on 40 ounce fluid restriction
-Urine electrolytes reviewed
-Not on any medication explaining hyponatremia
-S/p Samsca 15 mg and followed by 3% NS.
-F/u Sodium level.
-Extra sodium in diet removed.
# Significant orthostatic hypotension
Significant supine hypertension
- Patient have large swings of systolic blood pressure from 200 lying down to 130 on standing up
- Labetalol has been discontinued. on Procardia xl 30mg/bid
- Patient with significant labile HTN with SBP swinging from 100s to 200 range.
- cortisol/tsh wnl
- Compression stockings changed to thigh-high.
- Patient orthostatic vitals improved with fludrocortisone 0.1 mg dose yesterday, although some hypertension component, lowering dose to 0.05 mg a day today
- Discussed with nephrology at length who recommended possibly considering midodrine, as patient have improved in orthostasis with Florinef we will lower the dose for now and will reevaluate tomorrow for possibly switching to midodrine. Nephrology
in agreement
- Echocardiogram ordered as well to rule out any valvular issues
# Blurred vision
- mainly in right eye, stated of being there for last 2 days
- Denies scotoma/visual cut/not painful
- carotid doppler in nov 24 was normal
- Continue monitoring for any acute changes, will require ophthalmology follow-up post discharge
#unwitnessed fall
#mechanical fall
-C-Spine CT: No acute osseous abnormality.
Multilevel moderate/severe degenerative changes.
-Facial bone CT: No evidence of acute facial bone fracture.
Small right frontal/periorbital soft tissue contusion.
-Head CT: No acute intracranial abnormality noted.
# Nausea w/o vomiting -resolved
-Was having some right flank pain as well which has resolved
-CT head repeat did not show any changes
-continue monitoring
# Dementia with behavioral changes
- Some reported agitation overnight, likely from the hyponatremia
- Zyprexa added for help with night time agitation
#essential hypertension
- continue labetalol
#hyperlipidemia
- continue atorvastatin and clopidogrel
#iron deficiency anemia
hgb 13.1, hct 362
- continue ferrous sulfate
#chronic back pain
- continue cyclobenzaprine and tramadol
Code status: DNR
DVT prophylaxis: Lovenox Sq
Patient continues to have very elevated blood pressure with supine hypertension and orthostatic hypotension. Remains significant challenge to control both higher and lower end of blood pressure
Case discussed with nephrology
Total time spent : 52 mins
Anticipated Discharge: 24 - 48 hours
Subjective/Interval History
-
Date of Service: June 02, 2024
Feeling fatigued/lethargic
Still have some ongoing dizziness
Denies of any other issues
Objective Data
-
Labs:
Laboratory Results
06/02/24
10:55
Sodium Pending
Potassium Pending
Chloride Pending
Carbon Dioxide Pending
BUN Pending
Creatinine Pending
Glucose Pending
Calcium Pending
Vital Signs:
Vital Signs
Temp Pulse Resp BP Pulse Ox
98.8 F 93 16 146/69 95
06/02/24 11:10 06/02/24 11:10 06/02/24 11:10 06/02/24 11:10 06/02/24 11:10
I&O
06/01/24 06/02/24 06/03/24
06:59 06:59 06:59
Intake Total 720 / 720 700 / 700
Balance 720 / 720 700 / 700
Review of Systems
-
Unable to obtain full review of systems at this time due to: Dementia and Acuity
Physical Exam
-
HEENT: Other (bilateral periorbital echymosis); Negative Oxygen
Respiratory: Clear to Auscultation
Cardiac: Regular Rhythm and S1/S2; Negative Murmur or Rub
GI: Soft, Nontender and Nondistended
Musculoskeletal: No Edema
Neuro: Awake, Alert, Oriented, No Motor Deficits and Nonfocal/Grossly Intact
Psych: Calm
[2024-06-02 12:49] LABS: Blood Urea Nitrogen 30 mg/dl (7-17); Calcium 9.5 mg/dl (8.4-10.2); Carbon Dioxide 23 mmol/L (22-30); Chloride 100 mmol/L (98-107); Estimated Creatinine Clearance 49 ml/min; Glucose 101 mg/dl (70-99); Potassium 3.9 mmol/L (3.5-5.1); Sodium 133 mmol/L (135-145); eGFR > 60.00
[2024-06-02] MEDS: SODIUM CHLORIDE 1 GRAM PO ×2 (15:08→21:07)
[2024-06-02] MEDS: LOVENOX 30 MG SC (17:07)
[2024-06-02] MEDS: ZYPREXA 5 MG PO (21:08)
[2024-06-02] MEDS: LIPITOR 40 MG PO (21:08)
[2024-06-03] VITALS (7 sets, daily range): BP systolic 111–186; BP diastolic 49–93; PULSE 95–126
[2024-06-03 08:25] LABS: Blood Urea Nitrogen 28 mg/dl (7-17); Carbon Dioxide 22 mmol/L (22-30); Chloride 100 mmol/L (98-107); Estimated Creatinine Clearance 49 ml/min; Glucose 98 mg/dl (70-99); Potassium 3.4 mmol/L (3.5-5.1); Sodium 130 mmol/L (135-145); eGFR > 60.00
[2024-06-03] MEDS: OSCAL 500 + D 500 MG PO (09:12)
[2024-06-03] MEDS: PLAVIX 75 MG PO (09:12)
[2024-06-03] MEDS: THERAGRAN 1 TABLET PO (09:12)
[2024-06-03] MEDS: FLORINEF 0.05 MG PO (09:12)
[2024-06-03] MEDS: FEOSOL 325 MG PO (09:13)
[2024-06-03] MEDS: SODIUM CHLORIDE 1 GRAM PO ×3 (09:13→20:55)
[2024-06-03] MEDS: PROCARDIA XL (EXTENDED RELEASE) 30 MG PO ×2 (09:13→20:55)
[2024-06-03] MEDS: SENOKOT-S 1 TABLET PO (12:19)
[2024-06-03] MEDS: MIRALAX 17 GRAMS PO (12:19)
--- NOTE | 2024-06-03 12:44 | W.PN.HOSP.TC ---
Today's Communication/Plan
-
see note
Assessment / Plan
Assessment / Plan
#Acute on chronic hyponatremia
- Patient daughter reported patient having history of acute hyponatremia in the past with sodium dropping to 126
-Near past baseline of 132 on lab review
-Came in with sodium of 124
-Maintain on 40 ounce fluid restriction
-Urine electrolytes reviewed
-Not on any medication explaining hyponatremia
-S/p Samsca 15 mg and followed by 3% NS.
-F/u Sodium level. today 130
-Extra sodium in diet removed.
# Significant orthostatic hypotension
Significant supine hypertension
- Patient have large swings of systolic blood pressure from 200 lying down to 130 on standing up
- Labetalol has been discontinued. on Procardia xl 30mg/bid
- Patient with significant labile HTN with SBP swinging from 100s to 200 range.
- cortisol/TSH WNL
- Compression stockings changed to thigh-high.
- Tried on Florinef 0.1 mg daily dose, decreased to 0.05 mg/d
- Echocardiogram r/o any valvulopathy
# Diastolic heart failure
Possible left ventricular outflow tract obstruction
- Echocardiogram showing preserved EF with grade 2 diastolic dysfunction
- LVOT gradient of 32G at rest with Valsalva elevated to 47 mmHg
- Patient episodes of dizziness syncope will discuss with cardiology if it is of clinical relevance
# Blurred vision
- mainly in right eye, stated of being there for last 2 days
- Denies scotoma/visual cut/not painful
- carotid doppler in nov 24 was normal
- Continue monitoring for any acute changes, will require ophthalmology follow-up post discharge
#unwitnessed fall
#mechanical fall
-C-Spine CT: No acute osseous abnormality.
Multilevel moderate/severe degenerative changes.
-Facial bone CT: No evidence of acute facial bone fracture.
Small right frontal/periorbital soft tissue contusion.
-Head CT: No acute intracranial abnormality noted.
# Nausea w/o vomiting -resolved
-Was having some right flank pain as well which has resolved
-CT head repeat did not show any changes
-continue monitoring
# Dementia with behavioral changes
- Some reported agitation overnight, likely from the hyponatremia
- Zyprexa added for help with night time agitation
#essential hypertension
- continue labetalol
#hyperlipidemia
- continue atorvastatin and clopidogrel
#iron deficiency anemia
- hgb 13.1, hct 362
- continue ferrous sulfate
#chronic back pain
- continue cyclobenzaprine and tramadol
Code status: DNR
DVT prophylaxis: Lovenox Sq
Patient continues to have very elevated blood pressure with supine hypertension and orthostatic hypotension. Remains significant challenge to control both higher and lower end of blood pressure
Case discussed with nephrology
Total time spent : 52 mins
Anticipated Discharge: 24 - 48 hours
Subjective/Interval History
-
Date of Service: June 03, 2024
no complains overnight
continues feel dizzy, has not changed
no syncope overnight
Objective Data
-
Labs:
Laboratory Results
06/03/24
07:27
Sodium 130 L
Potassium 3.4 L
Chloride 100
Carbon Dioxide 22
BUN 28 H
Creatinine 0.5 L
Glucose 98
Calcium 9.0
Vital Signs:
Vital Signs
Temp Pulse Resp BP Pulse Ox
98.5 F 97 14 174/92 96
06/03/24 11:03 06/03/24 11:03 06/03/24 11:03 06/03/24 11:03 06/03/24 11:03
I&O
06/02/24 06/03/24 06/04/24
06:59 06:59 06:59
Intake Total 700 / 700 910 / 910
Balance
Review of Systems
-
Unable to obtain full review of systems at this time due to: Acuity
Physical Exam
-
HEENT: Other (bilateral periorbital echymosis); Negative Oxygen
Respiratory: Clear to Auscultation
Cardiac: Regular Rhythm and S1/S2; Negative Murmur or Rub
GI: Soft, Nontender and Nondistended
Musculoskeletal: No Edema
Neuro: Awake, Alert, Oriented, No Motor Deficits and Nonfocal/Grossly Intact
Psych: Calm
--- NOTE | 2024-06-03 13:34 | W.PN.NEPH.PH ---
Today's Communication / Plan
-
see plan
Assessment/Plan
-
83-year-old female with past medical history significant for essential hypertension, hyperlipidemia, Alzheimer's Disease, iron deficiency anemia, chronic back pain and chronic hyponatremia who presented to [facility] ED for evaluation of mechanical fall.
Sodium 123
Chronic hyponatremia
Impression.
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
Sodium 123 on admission
Hypertensive disorder�stable.
Alzheimer's disease.
Plan.
sodium slightly down to 130
Bp have improved today though she still
keep salt tab same dose and maintain FR
TSH and cortisol within normal limits
echo noted, hyperdynamic normal EF, TR, DD
spoke with primary-will change to midodrine 2.5mg BID and hold Florinef
encourage solute intake
d/w primary and family in detail
family notes her dizziness previously evaluated by ENT and neuro and no definitive etiology noted
Previously on urea which was expensive in the past.
-
-
Date of Service: June 03, 2024
CC / HPI / ROS
-
Chief Complaint:
Weakness
History of Present Illness:
Acute on chronic hyponatremia 123
last sodium 130
orthostatic better today
k low 3.4
Review of Systems:
still with dizziness
no cp or sob
Labs
-
Labs:
WBC 4.4 10^3/uL (4.8-10.8) L 06/01/24 06:42
RBC 3.76 10^6/uL (4.20-5.40) L 06/01/24 06:42
Hgb 12.7 g/dL (12.0-16.0) 06/01/24 06:42
Hct 35.2 % (37.0-47.0) L 06/01/24 06:42
Plt Count 233 10^3/uL (130-400) D 06/01/24 06:42
Sodium 130 mmol/L (135-145) L 06/03/24 07:27
Potassium 3.4 mmol/L (3.5-5.1) L 06/03/24 07:27
Chloride 100 mmol/L (98-107) 06/03/24 07:27
Carbon Dioxide 22 mmol/L (22-30) 06/03/24 07:27
BUN 28 mg/dl (7-17) H 06/03/24 07:27
Creatinine 0.5 mg/dL (0.6-1.0) L 06/03/24 07:27
eGFR > 60.00 06/03/24 07:27
Glucose 98 mg/dl (70-99) 06/03/24 07:27
Calcium 9.0 mg/dl (8.4-10.2) 06/03/24 07:27
Albumin 4.7 g/dl (3.5-5.0) 05/28/24 16:18
Physical Exam
-
Vital Signs:
Vital Signs
Temp Pulse Resp BP Pulse Ox
98.5 F 97 14 174/92 96
06/03/24 11:03 06/03/24 11:03 06/03/24 11:03 06/03/24 11:03 06/03/24 11:03
Cardiovascular:: Regular rate and rhythm (murmur)
Respiratory:: Bilateral: CTA
Lung Excursion:: Normal
Abdomen:: Nontender and Soft
Bowel Sounds:: Normal
Extremity Edema:: None: Bilateral:
Paulino Catheter: No
--- NOTE | 2024-06-03 16:32 | CON.CAR ---
Consultation
Consultation Request
Date/Time Consultation Requested: 06/03 at 1329
Date/Time Consultation Performed: 06/03 at 1615
Requesting Provider: Brigido Vaughn MD
Performing Provider: Amado Castillo MD
Reason for Consultation: concerning for HCM
Medical History
-
Chief Complaint: LVOT obstruction
History of Present Illness:
83-year-old female with past medical history significant for essential hypertension, hyperlipidemia, Alzheimer's Disease, iron deficiency anemia, chronic back pain and chronic hyponatremia who presented to ED for evaluation of mechanical fall.
Cardiology is consulted due to concern for LVOT obstruction on echocardiogram. She reports that she had a mechanical fall prior to admission. She is fairly certain this was not syncope. She thinks she tripped over her feet. She was conscious
when she hit the floor. Outside of this event, she denies other falls, presyncope, syncope, chest pain, or dyspnea on exertion. She struggles with labile hypertension and hyponatremia and follows closely with nephrology as an outpatient. TTE on
06/02/24 showed small LV size with hyperdynamic systolic function (LVEF 70-75%), mild LVH, stage II DD, LVOT gradient 32 mmHg at rest and 47 mmHg with Valsalva, moderate TR, PASP 45 mmHg.
Past Medical History
Past Medical History: Other (as above)
Social History
Tobacco: Non-Smoker
Living: Alone
Family History
Family History: Reviewed & Not Pertinent (no family history of sudden or structural heart disease)
Allergies / Home Medications
Allergy/AdvReac Type Severity Reaction Status Date / Time
erythromycin base Allergy Hives Verified 05/28/24 16:02
�Medication �Instructions �Recorded �Confirmed �Type
atorvastatin 40 mg tablet 40 mg PO HS High cholesterol 04/13/20 05/28/24 History
labetalol 100 mg tablet 100 mg PO BID Blood pressure 04/13/20 05/28/24 History
tramadol 50 mg tablet 50 mg PO DAILYPRN PRN moderate pain 04/13/20 05/28/24 History
acetaminophen 500 mg tablet 1,000 mg PO BID PAIN,TEMP 05/28/24 05/28/24 History
(Tylenol Extra Strength)
calcium 600 mg (as 2 cap PO DAILY Supplement 05/28/24 05/28/24 History
carbonate)-vitamin D3 12.5 mcg
(500 unit) capsule
clopidogrel 75 mg tablet 75 mg PO DAILY Blood Clot 05/28/24 05/28/24 History
Prevention/Tx
cyclobenzaprine 5 mg tablet 5 mg PO DAILYPRN PRN muscle spasms 05/28/24 05/28/24 History
ferrous sulfate 325 mg (65 mg 325 mg PO DAILY Supplement 05/28/24 05/28/24 History
iron) tablet
therapeutic multivitamin 1 tab PO DAILY Supplement 05/28/24 05/28/24 History
Review of Systems
-
All other systems: Negative unless noted
Physical Exam
Vital Signs
Temp Pulse Resp BP Pulse Ox
98.1 F 108 16 111/60 95
06/03/24 15:17 06/03/24 15:17 06/03/24 15:17 06/03/24 15:17 06/03/24 15:17
Lab Results
06/01/24 06:42
06/03/24 07:27
Troponin I < 0.012 ng/ml 05/28/24 16:18
Physical Exam
General: Well Developed
HEENT: Other (Facial trauma with bilateral ecchymoses under eyes)
Respiratory: Clear
Cardiac: S1/S2 and Regular Rhythm; Negative Murmur or Peripheral Edema
Impression / Plan
-
83-year-old female with past medical history significant for essential hypertension, hyperlipidemia, Alzheimer's Disease, iron deficiency anemia, chronic back pain and chronic hyponatremia who presented to ED for evaluation of mechanical fall.
Cardiology is consulted due to concern for LVOT obstruction.
LVOT obstruction
-TTE on 06/02/24 showed small LV size with hyperdynamic systolic function (LVEF 70-75%), mild LVH, stage II DD, LVOT gradient 32 mmHg at rest and 47 mmHg with Valsalva, moderate TR, PASP 45 mmHg.
-LVOT gradient is most likely due to underfilled LV with hyperdynamic systolic function
-A diagnosis of HCM with LVOTO would be very rare at the age of 83 and she has no family hx of this, ECG is not consistent. She denies dyspnea, chest pain, and syncope
-Recommend repeating echo as an outpatient once she is better hydrated
Mechanical fall
-Patient is specific that this was a mechanical fall and not syncope but facial trauma is remarkable
-Tele unremarkable here
-Consider 2 week monitor as an outpatient.
Cardiology will sign off at this time. I will request follow-up with our office for repeat echocardiogram and possible 2-week monitor.
Data Reviewed
-
EKG: Tracing Personally Visualized and interpreted
Medical Tests (Nuc Med, Echo etc): Report Reviewed by me
Labs: Labs Reviewed by me
[2024-06-03] MEDS: LOVENOX 30 MG SC (17:05)
[2024-06-03] MEDS: TYLENOL 650 MG PO (18:31)
[2024-06-03] MEDS: ZYPREXA 5 MG PO (20:55)
[2024-06-03] MEDS: LIPITOR 40 MG PO (20:55)
[2024-06-04] MEDS: ULTRAM 50 MG PO (06:40)
[2024-06-04] MEDS: SODIUM CHLORIDE 1 GRAM PO ×3 (06:59→20:49)
[2024-06-04] MEDS: PROCARDIA XL (EXTENDED RELEASE) 30 MG PO ×2 (07:00→20:49)
[2024-06-04] MEDS: MIRALAX 17 GRAMS PO (07:01)
[2024-06-04] MEDS: FLORINEF 0.05 MG PO (07:01)
[2024-06-04] MEDS: OSCAL 500 + D 500 MG PO (07:01)
[2024-06-04] MEDS: PLAVIX 75 MG PO (07:01)
[2024-06-04] MEDS: THERAGRAN 1 TABLET PO (07:01)
[2024-06-04] MEDS: FEOSOL 325 MG PO (07:01)
[2024-06-04 07:44] LABS: Blood Urea Nitrogen 23 mg/dl (7-17); Calcium 9.1 mg/dl (8.4-10.2); Carbon Dioxide 25 mmol/L (22-30); Chloride 100 mmol/L (98-107); Estimated Creatinine Clearance 49 ml/min; Glucose 95 mg/dl (70-99); Potassium 3.6 mmol/L (3.5-5.1); Sodium 133 mmol/L (135-145); eGFR > 60.00
[2024-06-04] MEDS: TYLENOL 650 MG PO ×3 (09:53→20:50)
[2024-06-04] MEDS: TORADOL 15 MG IV (11:35)
--- NOTE | 2024-06-04 12:32 | W.PN.HOSP.TC ---
Today's Communication/Plan
-
see note
Assessment / Plan
Assessment / Plan
#Acute on chronic hyponatremia
- Patient daughter reported patient having history of acute hyponatremia in the past with sodium dropping to 126
-Near past baseline of 132 on lab review
-Came in with sodium of 124
-Maintain on 40 ounce fluid restriction
-Urine electrolytes reviewed
-Not on any medication explaining hyponatremia
-S/p Samsca 15 mg and followed by 3% NS.
-F/u Sodium level. today 130
-Extra sodium in diet removed.
# Significant orthostatic hypotension
Significant supine hypertension
- Patient have large swings of systolic blood pressure from 200 lying down to 130 on standing up
- Labetalol has been discontinued. on Procardia xl 30mg/bid
- Patient with significant labile HTN with SBP swinging from 100s to 200 range.
- cortisol/TSH WNL
- Compression stockings changed to thigh-high.
- Echocardiogram r/o any valvulopathy
- Some expected response with florinef but due to side effect trying midodrine. got dose today, monitor.
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
- Echocardiogram showing preserved EF with grade 2 diastolic dysfunction
- LVOT gradient of 32 mmhg at rest with Valsalva elevated to 47 mmHg
- Cardiology evaluated and likely not playing role in current presentation symptoms, patient to be followed in office with repeat TTE in 3months
- would prefer BB instead of vasodilators in true LVOT cases, currently being maintained on procardia.
# Blurred vision
- mainly in right eye, stated of being there for last 2 days
- Denies scotoma/visual cut/not painful
- carotid doppler in oct 24 was normal
- Continue monitoring for any acute changes, will require ophthalmology follow-up post discharge
#unwitnessed fall
#mechanical fall
-C-Spine CT: No acute osseous abnormality.
Multilevel moderate/severe degenerative changes.
-Facial bone CT: No evidence of acute facial bone fracture.
Small right frontal/periorbital soft tissue contusion.
-Head CT: No acute intracranial abnormality noted.
# Nausea w/o vomiting -resolved
-Was having some right flank pain as well which has resolved
-CT head repeat did not show any changes
-continue monitoring
# Dementia with behavioral changes
- Some reported agitation overnight, likely from the hyponatremia
- Zyprexa added for help with night time agitation
#essential hypertension
- continue labetalol
#hyperlipidemia
- continue atorvastatin and clopidogrel
#iron deficiency anemia
- hgb 13.1, hct 362
- continue ferrous sulfate
#chronic back pain
- continue cyclobenzaprine and tramadol
Code status: DNR
DVT prophylaxis: Lovenox Sq
Patient continues to have very elevated blood pressure with supine hypertension and orthostatic hypotension. Remains significant challenge to control both higher and lower end of blood pressure
Anticipated Discharge: Within 24 hours
Subjective/Interval History
-
Date of Service: June 04, 2024
No reported issues overnight
Have some worsening neck pain tramadol did not help overnight,
Continues to have chronic dizziness
Objective Data
-
Labs:
Laboratory Results
06/04/24
06:34
Sodium 133 L
Potassium 3.6
Chloride 100
Carbon Dioxide 25
BUN 23 H
Creatinine 0.5 L
Glucose 95
Calcium 9.1
Vital Signs:
Vital Signs
Temp Pulse Resp BP Pulse Ox
98.0 F 84 17 174/76 95
06/04/24 07:23 06/04/24 07:00 06/03/24 23:53 06/04/24 07:00 06/04/24 07:23
I&O
06/03/24 06/04/24 06/05/24
06:59 06:59 06:59
Intake Total 910 / 910 780 / 780
Balance 910 / 910 780 / 780
Review of Systems
-
Respiratory: Reports No Symptoms
Cardiac: Reports No Symptoms
Abdomen/GI: Reports No Symptoms
Physical Exam
-
General: No Apparent Distress and Comfortable
HEENT: Other (bilateral periorbital bruising); Negative Oxygen
Musculoskeletal: No Edema
Neuro: Awake, Alert, Oriented, No Motor Deficits and Nonfocal/Grossly Intact
Psych: Calm
[2024-06-04 15:28] VITALS: BP 128/69
--- NOTE | 2024-06-04 15:28 | W.PN.NEPH.PH ---
Today's Communication / Plan
-
see plan
Assessment/Plan
-
83-year-old female with past medical history significant for essential hypertension, hyperlipidemia, Alzheimer's Disease, iron deficiency anemia, chronic back pain and chronic hyponatremia who presented to [facility] ED for evaluation of mechanical fall.
Sodium 123
Chronic hyponatremia
Impression.
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
Sodium 123 on admission
Hypertensive disorder�stable.
Alzheimer's disease.
Plan.
sodium better at 133
Bp remains labile with improving symp
keep salt tab same dose and maintain FR
TSH and cortisol within normal limits
echo noted, hyperdynamic normal EF, TR, DD
will change to midodrine 2.5mg BID and hold Florinef
encourage solute intake
d/w pt
family notes her dizziness previously evaluated by ENT and neuro and no definitive etiology noted
Previously on urea which was expensive in the past.
-
-
Date of Service: June 04, 2024
CC / HPI / ROS
-
Chief Complaint:
Weakness
History of Present Illness:
sodium upto 133
orthostatic symp better today , bp labile
k better 3.6
Review of Systems:
improving dizziness
no cp or sob
Labs
-
Labs:
WBC 4.4 10^3/uL (4.8-10.8) L 06/01/24 06:42
RBC 3.76 10^6/uL (4.20-5.40) L 06/01/24 06:42
Hgb 12.7 g/dL (12.0-16.0) 06/01/24 06:42
Hct 35.2 % (37.0-47.0) L 06/01/24 06:42
Plt Count 233 10^3/uL (130-400) D 06/01/24 06:42
Sodium 133 mmol/L (135-145) L 06/04/24 06:34
Potassium 3.6 mmol/L (3.5-5.1) 06/04/24 06:34
Chloride 100 mmol/L (98-107) 06/04/24 06:34
Carbon Dioxide 25 mmol/L (22-30) 06/04/24 06:34
BUN 23 mg/dl (7-17) H 06/04/24 06:34
Creatinine 0.5 mg/dL (0.6-1.0) L 06/04/24 06:34
eGFR > 60.00 06/04/24 06:34
Glucose 95 mg/dl (70-99) 06/04/24 06:34
Calcium 9.1 mg/dl (8.4-10.2) 06/04/24 06:34
Albumin 4.7 g/dl (3.5-5.0) 05/28/24 16:18
Physical Exam
-
Vital Signs:
Vital Signs
Temp Pulse Resp BP Pulse Ox
98.0 F 84 17 174/76 95
06/04/24 07:23 06/04/24 07:00 06/03/24 23:53 06/04/24 07:00 06/04/24 07:23
Cardiovascular:: Regular rate and rhythm (murmur)
Respiratory:: Bilateral: CTA
Lung Excursion:: Normal
Abdomen:: Nontender and Soft
Bowel Sounds:: Normal
Extremity Edema:: None: Bilateral:
Paulino Catheter: No
Other Findings::
kyphotic
[2024-06-04 16:35] VITALS: BP 128/69; BP 135/71; PULSE 91; O2SAT 99
[2024-06-04] MEDS: LOVENOX 30 MG SC (17:05)
[2024-06-04] MEDS: LIPITOR 40 MG PO (20:50)
[2024-06-04] MEDS: ZYPREXA 5 MG PO (20:50)
[2024-06-04 23:50] VITALS: BP 128/62
[2024-06-05 07:00] VITALS: BP 192/90
[2024-06-05] MEDS: OSCAL 500 + D 500 MG PO (07:54)
[2024-06-05] MEDS: PLAVIX 75 MG PO (07:54)
[2024-06-05] MEDS: FEOSOL 325 MG PO (07:54)
[2024-06-05] MEDS: THERAGRAN 1 TABLET PO (07:54)
[2024-06-05] MEDS: SODIUM CHLORIDE 1 GRAM PO ×2 (07:54→15:09)
[2024-06-05] MEDS: PROCARDIA XL (EXTENDED RELEASE) 30 MG PO (07:55)
[2024-06-05] MEDS: APRESOLINE 10 MG IV (07:55)
[2024-06-05] MEDS: MIRALAX 17 GRAMS PO (08:04)
[2024-06-05 09:05] LABS: Blood Urea Nitrogen 30 mg/dl (7-17); Carbon Dioxide 26 mmol/L (22-30); Chloride 99 mmol/L (98-107); Estimated Creatinine Clearance 49 ml/min; Glucose 94 mg/dl (70-99); Potassium 3.8 mmol/L (3.5-5.1); Sodium 133 mmol/L (135-145); eGFR > 60.00
[2024-06-05 09:27] VITALS: BP 142/68; BP 146/78; BP 149/63; PULSE 101; PULSE 105; PULSE 113
--- NOTE | 2024-06-05 10:51 | CM ---
Addendum entered by Monica Worthy 06/05/24 11:17:
PLAN: Bed available today at [facility]
Report #: [phone] Fax #: [phone]
IMM explained & signed
careport updated
Original Note:
Patient seen at [facility] with daughter
LM with Landy at [facility]
no preauth
PLAN: [facility], pending bed availability
[2024-06-05 14:20] VITALS: BP 167/74
--- NOTE | 2024-06-05 14:24 | W.PN.NEPH.PH ---
Today's Communication / Plan
-
see plan
ok for d/c
BMP in 2-3days
PCP and nephro f/u
Assessment/Plan
-
83-year-old female with past medical history significant for essential hypertension, hyperlipidemia, Alzheimer's Disease, iron deficiency anemia, chronic back pain and chronic hyponatremia who presented to [facility] ED for evaluation of mechanical fall.
Sodium 123
Chronic hyponatremia
Impression.
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
Sodium 123 on admission
Hypertensive disorder�stable.
Alzheimer's disease.
Plan.
sodium stable at 133
Bp remains labile with improving symp
keep salt tab same dose and maintain FR
TSH and cortisol within normal limits
echo noted, hyperdynamic normal EF, TR, DD
midodrine 2.5mg BID and hold Florinef
encourage solute intake
d/w pt and primary
family notes her dizziness previously evaluated by ENT and neuro and no definitive etiology noted
Previously on urea which was expensive in the past.
-
-
Date of Service: June 05, 2024
CC / HPI / ROS
-
Chief Complaint:
Weakness
History of Present Illness:
sodium stable at 133
orthostatic symp better today , bp labile
k better 3.8
Review of Systems:
improving dizziness
no cp or sob
Labs
-
Labs:
WBC 4.4 10^3/uL (4.8-10.8) L 06/01/24 06:42
RBC 3.76 10^6/uL (4.20-5.40) L 06/01/24 06:42
Hgb 12.7 g/dL (12.0-16.0) 06/01/24 06:42
Hct 35.2 % (37.0-47.0) L 06/01/24 06:42
Plt Count 233 10^3/uL (130-400) D 06/01/24 06:42
Sodium 133 mmol/L (135-145) L 06/05/24 06:34
Potassium 3.8 mmol/L (3.5-5.1) 06/05/24 06:34
Chloride 99 mmol/L (98-107) 06/05/24 06:34
Carbon Dioxide 26 mmol/L (22-30) 06/05/24 06:34
BUN 30 mg/dl (7-17) H 06/05/24 06:34
Creatinine 0.5 mg/dL (0.6-1.0) L 06/05/24 06:34
eGFR > 60.00 06/05/24 06:34
Glucose 94 mg/dl (70-99) 06/05/24 06:34
Calcium 9.0 mg/dl (8.4-10.2) 06/05/24 06:34
Albumin 4.7 g/dl (3.5-5.0) 05/28/24 16:18
Physical Exam
-
Vital Signs:
Vital Signs
Temp Pulse Resp BP Pulse Ox
97.9 F 89 16 192/90 96
06/05/24 07:00 06/05/24 07:55 06/05/24 07:00 06/05/24 07:55 06/05/24 07:00
Cardiovascular:: Regular rate and rhythm (murmur)
Respiratory:: Bilateral: CTA
Lung Excursion:: Normal
Abdomen:: Nontender and Soft
Bowel Sounds:: Normal
Extremity Edema:: None: Bilateral:
Paulino Catheter: No
Other Findings::
kyphotic
--- NOTE | 2024-06-05 14:31 | W.PN.HOSP.TC ---
Today's Communication/Plan
-
d/c snf rehab
Assessment / Plan
Assessment / Plan
#Acute on chronic hyponatremia
- Patient daughter reported patient having history of acute hyponatremia in the past with sodium dropping to 126
-Near past baseline of 132 on lab review
-Came in with sodium of 124
-Maintain on 40 ounce fluid restriction
-Urine electrolytes reviewed
-Not on any medication explaining hyponatremia
-S/p Samsca 15 mg and followed by 3% NS.
-F/u Sodium level. today 133
- Nephro recommended to maintain on sodium pills
# Significant orthostatic hypotension
Significant supine hypertension
- Patient have large swings of systolic blood pressure from 200 lying down to 130 on standing up
- Labetalol has been discontinued. on Procardia xl 30mg/bid
- Patient with significant labile HTN with SBP swinging from 100s to 200 range.
- cortisol/TSH WNL
- Compression stockings changed to thigh-high.
- Echocardiogram r/o any valvulopathy
- Patient continues to have supine hypertension although concern of orthostatic hypotension as well. After discussion with nephrology/family patient will be maintained on 2-1/2 midodrine twice daily
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
- Echocardiogram showing preserved EF with grade 2 diastolic dysfunction
- LVOT gradient of 32 mm-hg at rest with Valsalva elevated to 47 mmHg
- Cardiology evaluated and likely not playing role in current presentation symptoms, patient to be followed in office with repeat TTE in 3months
- would prefer BB instead of vasodilators in true LVOT cases, currently being maintained on procardia.
# Blurred vision
- mainly in right eye, stated of being there for last 2 days
- Denies scotoma/visual cut/not painful
- carotid doppler in oct 24 was normal
- Continue monitoring for any acute changes, will require ophthalmology follow-up post discharge
#unwitnessed fall
#mechanical fall
-C-Spine CT: No acute osseous abnormality.
Multilevel moderate/severe degenerative changes.
-Facial bone CT: No evidence of acute facial bone fracture.
Small right frontal/periorbital soft tissue contusion.
-Head CT: No acute intracranial abnormality noted.
# Nausea w/o vomiting -resolved
-Was having some right flank pain as well which has resolved
-CT head repeat did not show any changes
-continue monitoring
# Dementia with behavioral changes
- Some reported agitation overnight, likely from the hyponatremia
- Zyprexa added for help with night time agitation
#essential hypertension
- continue labetalol
#hyperlipidemia
- continue atorvastatin and clopidogrel
#iron deficiency anemia
- hgb 13.1, hct 362
- continue ferrous sulfate
#chronic back pain
- continue cyclobenzaprine and tramadol
Code status: DNR
DVT prophylaxis: Lovenox Sq
More than 30 minutes spent in discharge including
Final examination of the patient
Summarizing hospital stay
Instructions for continuing care to all relevant caregivers
Preparation of discharge records, prescriptions, and referral forms
Total time spent (in minutes): 39 mins
Anticipated Discharge: Today
Subjective/Interval History
-
Date of Service: June 05, 2024
Denies having any problems
Continues to have chronic dizziness
No episodes of syncope
Objective Data
-
Labs:
Laboratory Results
06/05/24
06:34
Sodium 133 L
Potassium 3.8
Chloride 99
Carbon Dioxide 26
BUN 30 H
Creatinine 0.5 L
Glucose 94
Calcium 9.0
Vital Signs:
Vital Signs
Temp Pulse Resp BP Pulse Ox
97.9 F 89 16 192/90 96
06/05/24 07:00 06/05/24 07:55 06/05/24 07:00 06/05/24 07:55 06/05/24 08:00
I&O
06/04/24 06/05/24 06/06/24
06:59 06:59 06:59
Intake Total 780 / 780 480 / 480
Balance 780 / 780 480 / 480
Review of Systems
-
Respiratory: Reports No Symptoms
Cardiac: Reports No Symptoms
Abdomen/GI: Reports No Symptoms
Physical Exam
-
General: No Apparent Distress and Comfortable
HEENT: Other (bilateral periorbital bruising); Negative Oxygen
Musculoskeletal: No Edema
Neuro: Awake, Alert, Oriented, No Motor Deficits and Nonfocal/Grossly Intact
Psych: Calm
[2024-06-05 15:18] VITALS: BP 131/75
--- NOTE | 2024-06-05 18:01 | W.DCSUMMARY ---
Discharge Summary
Discharge Data
Date of Admission: 05/29/24
Date of Discharge: 06/05/24
-
Pending Results: No
Hospital Course
Discharging Physician : Dr Brigido Vaughn
Disposition : SNF rehab
Primary care physician : Dr Pranay Dale
Principal Discharge diagnosis :
Mechanical fall
Severe orthostatic hypotension
Uncontrolled supine hypertension
Euvolemic hyponatremia
Blurred vision
Episodic nausea
Chronic Discharge diagnosis :
Dementia with behavioral problems
Essential hypertension
Hyperlipidemia
Iron deficiency anemia
Chronic back pain
Hospital Course :
Patient is 83-year-old female with above-mentioned past medical history was brought to ER after patient had a mechanical fall. Patient with history of chronic dizziness and uses walker, this time around when patient walking to the bathroom ended up
having mechanical fall. No reported syncope.
Patient at trauma workup with CT head/CT facial bone CT C-spine and all were negative.
In ER evaluation showing patient having hyponatremia with sodium down to 124. Urine studies were sent and nephrology was involved in care for further evaluation. Patient was felt to having euvolemic hyponatremia with possible ADH excess. Patient
was provided dose of tolvaptan although did not have much improvement in sodium. Follow-up patient was provided 3% normal saline. With this patient sodium level normalized. At discharge patient instructed to be maintained on 40 ounce fluid
restriction, patient also started on sodium tablets.
Patient also found to having significant orthostatic hypotension with severe supine hypertension where patient systolic blood pressure was swinging from 180-200 range on lying to 100-120 on standing up. Patient labetalol was discontinued. Patient
was started on Procardia. Compression stockings were ordered. Nephrology was involved in care for further help as well. An echocardiogram was done which ruled out valvulopathy, there was some questionable LVOT obstruction although this was
clinically deemed not relevant by cardiology. Cardiology is planning to follow-up patient in the office and will likely do repeat echocardiogram. Patient was started on Florinef therapy with which patient orthostasis improved although patient had
hypokalemia. Nephrology recommended for patient to be maintained on small dose of midodrine. At this point patient regimen is not perfect although vitals has been acceptable range. I have contacted patient primary care physician to follow-up
patient in the office and continued with further medication changes needed.
Patient also complaining some blurred vision mainly in the right eye present for few days and was waxing and waning in nature. Patient denied of having any scotoma/visual field cut. Patient already had a carotid Doppler in the past and was normal.
Patient will benefit with follow-up with ophthalmology postdischarge.
Post medical stabilization patient is discharge to intermediate facility for rehab.
Important imaging findings :
None
Procedure findings :
None
Discharge Plan
-
Patient Disposition: Snf/SNF
Discharge Diagnosis/Procedures: Orthostatic hypotension, mechanical fall, hyponatremia
Condition: Fair
Diet: Other diet
Additional Diets: 40 oz fluid restriction
Activity: As tolerated
Driving Restrictions: No driving
Bathing Restrictions: OK to Shower
Other Services: PT
Activity Restrictions/Additional Instructions:
Please use compression stockings during the day time
Referrals:
Pranay Dale MD [Family Provider] - in one week
Stefany Thomas MD [Active] -
Prescriptions:
New
nifedipine 30 mg Tablet Extended Release
30 mg PO BID Qty: 30 0RF
sodium chloride 1,000 mg Tablet,Soluble
1,000 mg PO TID Qty: 60 0RF
tramadol 50 mg tablet
50 mg PO BID PRN (Reason: Pain) Qty: 10 0RF
midodrine 2.5 mg tablet
2.5 mg PO .BID at 0800,1300 Qty: 60 0RF
Continued
atorvastatin 40 MG tablet
40 mg PO HS
therapeutic multivitamin Tablet
1 tab PO DAILY
clopidogrel 75 mg Tablet
75 mg PO DAILY
acetaminophen [Tylenol Extra Strength] 500 mg Tablet
1,000 mg PO BID
ferrous sulfate 325 mg (65 mg iron) Tablet
325 mg PO DAILY
cyclobenzaprine 5 mg Tablet
5 mg PO DAILYPRN PRN (Reason: muscle spasms)
calcium carbonate-vitamin D3 600 mg-12.5 mcg (500 unit) Capsule
2 cap PO DAILY
Discontinued
tramadol 50 MG tablet
50 mg PO DAILYPRN PRN (Reason: moderate pain)
labetalol 100 MG tablet
100 mg PO BID
Discharge Orders:
Discharge Patient (As Directed); Ordered 06/05/24
Ordered By: Brigido Vaughn
Discharge Date and Time
Discharge Date/Time: 06/05/24 16:08
Print Language: LIBYAN
== END 2024-06-05 16:08 | DRG 644 ==
LOC: 3 WEST ACU 14:05
PROVIDERS: Nurse Practitioner Family; Physician Assistant Medical; ADMITTING PHYSICIAN Internal Medicine; ATTENDING PHYSICIAN Hospitalist; CONSULT PHYSICIAN Student in an Organized Health Care Education/Training Program; EMERGENCY PHYSICIAN Emergency Medicine; FAMILY PHYSICIAN Family Medicine; OTHER PHYSICIAN Internal Medicine Nephrology
DX: E22.2 Syndrome of inappropriate secretion of antidiuretic hormone (principal); F02.811 Dementia in other diseases classified elsewhere, unspecified severity, with agitation; R64 Cachexia; Z68.1 Body mass index [BMI] 19.9 or less, adult; S00.11XA Contusion of right eyelid and periocular area, initial encounter; S00.83XA Contusion of other part of head, initial encounter; Z66 Do not resuscitate; G30.9 Alzheimer's disease, unspecified; D50.9 Iron deficiency anemia, unspecified; E78.00 Pure hypercholesterolemia, unspecified; E87.6 Hypokalemia; I95.1 Orthostatic hypotension; I10 Essential (primary) hypertension; G89.29 Other chronic pain; M81.0 Age-related osteoporosis without current pathological fracture; H53.8 Other visual disturbances; I11.9 Hypertensive heart disease without heart failure; W01.0XXA Fall on same level from slipping, tripping and stumbling without subsequent striking against object, initial encounter; Z87.891 Personal history of nicotine dependence; Z88.1 Allergy status to other antibiotic agents; Z79.02 Long term (current) use of antithrombotics/antiplatelets; Z79.899 Other long term (current) drug therapy
CPT/HCPCS: 70450; 70486; 72125; 80048; 80053; 81003; 81015; 82533; 83930; 83935; 84295; 84300; 84439; 84443; 84484; 85025; 85027; 87070; 87086; 93005; 93306; 97110; 97116; 97163; 97166; 97530; 97535; 99285

== ENCOUNTER → 2024-06-08 09:54 | Outpatient (REF) | payer MEDICARE, OTHER, SELFPAY ==
[2024-06-08 11:01] LABS: Hematocrit 34.4 % (37.0-47.0); Hemoglobin 12.4 g/dL (12.0-16.0); Mean Corpuscular Hgb 34.2 pg (27.0-31.0); Mean Corpuscular Volume 94.8 fL (81.0-99.0); Mean Platelet Volume 9.1 fL (7.4-10.4); Platelet Count 322 10^3/uL (130-400); Red Blood Cell Count 3.63 10^6/uL (4.20-5.40); Red Cell Dist. Width 11.5 % (11.5-14.5); White Blood Cell Count 3.3 10^3/uL (4.8-10.8)
[2024-06-08 11:29] LABS: ALT (SGPT) 21 U/L (0-35); AST (SGOT) 25 U/L (14-36); Albumin 3.6 g/dl (3.5-5.0); Alkaline Phosphatase 56 U/L (38-126); Blood Urea Nitrogen 21 mg/dl (7-17); Calcium 9.2 mg/dl (8.4-10.2); Carbon Dioxide 24 mmol/L (22-30); Chloride 102 mmol/L (98-107); Glucose 87 mg/dl (70-99); Magnesium 1.7 mg/dl (1.6-2.3); Potassium 4.1 mmol/L (3.5-5.1); Sodium 134 mmol/L (135-145); Total Bilirubin 0.7 mg/dl (0.2-1.3); Total Protein 5.8 g/dl (6.3-8.2); eGFR > 60.00
== END ==
LOC: OLABWHC 09:54
PROVIDERS: ATTENDING PHYSICIAN Family Medicine
DX: E87.1 Hypo-osmolality and hyponatremia (principal); I95.1 Orthostatic hypotension
CPT/HCPCS: 36415; 80053; 83735; 85027

== ENCOUNTER → 2024-07-28 11:31 | Outpatient (REF) | payer MEDICARE, OTHER, SELFPAY ==
[2024-07-28 14:09] LABS: Blood Urea Nitrogen 24 mg/dl (7-17); Calcium 10.2 mg/dl (8.4-10.2); Carbon Dioxide 25 mmol/L (22-30); Chloride 99 mmol/L (98-107); Glucose 85 mg/dl (70-99); Potassium 4.9 mmol/L (3.5-5.1); Sodium 131 mmol/L (135-145); eGFR > 60.00
== END ==
LOC: REG 11:31
PROVIDERS: ATTENDING PHYSICIAN Specialist; FAMILY PHYSICIAN Family Medicine
DX: E87.1 Hypo-osmolality and hyponatremia (principal)
CPT/HCPCS: 36415; 80048

== ENCOUNTER → 2024-08-10 16:53 | Outpatient (REF) | payer MEDICARE, OTHER, SELFPAY ==
[2024-08-10 17:57] LABS: Blood Urea Nitrogen 27 mg/dl (7-17); Calcium 10.1 mg/dl (8.4-10.2); Carbon Dioxide 25 mmol/L (22-30); Chloride 95 mmol/L (98-107); Glucose 108 mg/dl (70-99); Potassium 4.6 mmol/L (3.5-5.1); Sodium 129 mmol/L (135-145); eGFR > 60.00
== END ==
LOC: REG 16:53
PROVIDERS: ATTENDING PHYSICIAN Specialist; FAMILY PHYSICIAN Family Medicine
DX: I10 Essential (primary) hypertension (principal); E87.1 Hypo-osmolality and hyponatremia; D50.9 Iron deficiency anemia, unspecified
CPT/HCPCS: 36415; 80048

== ENCOUNTER → 2024-09-05 14:46 | Outpatient (REF) | payer MEDICARE, OTHER, SELFPAY ==
[2024-09-05 16:20] LABS: Blood Urea Nitrogen 27 mg/dl (7-17); Calcium 9.9 mg/dl (8.4-10.2); Carbon Dioxide 25 mmol/L (22-30); Chloride 100 mmol/L (98-107); Glucose 102 mg/dl (70-99); Potassium 4.7 mmol/L (3.5-5.1); Sodium 132 mmol/L (135-145); Uric Acid 3.1 mg/dl (2.5-6.2); eGFR > 60.00
== END ==
LOC: REG 14:46
PROVIDERS: ATTENDING PHYSICIAN Specialist; FAMILY PHYSICIAN Family Medicine
DX: I10 Essential (primary) hypertension (principal); D50.9 Iron deficiency anemia, unspecified; E87.1 Hypo-osmolality and hyponatremia
CPT/HCPCS: 36415; 80048; 84550

== ENCOUNTER → 2024-09-20 14:47 | Outpatient (REF) | payer MEDICARE, OTHER, SELFPAY ==
[2024-09-20 16:30] LABS: Blood Urea Nitrogen 27 mg/dl (7-17); Calcium 9.5 mg/dl (8.4-10.2); Carbon Dioxide 25 mmol/L (22-30); Chloride 96 mmol/L (98-107); Glucose 84 mg/dl (70-99); Potassium 4.7 mmol/L (3.5-5.1); Sodium 130 mmol/L (135-145); eGFR > 60.00
== END ==
LOC: REG 14:47
PROVIDERS: ATTENDING PHYSICIAN Specialist; FAMILY PHYSICIAN Family Medicine
DX: I10 Essential (primary) hypertension (principal); E87.1 Hypo-osmolality and hyponatremia
CPT/HCPCS: 36415; 80048

== ENCOUNTER → 2024-10-23 14:44 | Outpatient (REF) | payer MEDICARE, OTHER, SELFPAY ==
[2024-10-23 16:33] LABS: Blood Urea Nitrogen 30 mg/dl (7-17); Calcium 9.9 mg/dl (8.4-10.2); Carbon Dioxide 27 mmol/L (22-30); Chloride 97 mmol/L (98-107); Glucose 86 mg/dl (70-99); Potassium 5.4 mmol/L (3.5-5.1); Sodium 129 mmol/L (135-145); eGFR > 60.00
== END ==
LOC: REG 14:44
PROVIDERS: ATTENDING PHYSICIAN Specialist; FAMILY PHYSICIAN Family Medicine
DX: I10 Essential (primary) hypertension (principal); D50.9 Iron deficiency anemia, unspecified; E87.1 Hypo-osmolality and hyponatremia; E87.6 Hypokalemia
CPT/HCPCS: 36415; 80048

== ENCOUNTER → 2024-11-14 14:06 | Outpatient (REF) | payer MEDICARE, OTHER, SELFPAY ==
[2024-11-14 15:41] LABS: Blood Urea Nitrogen 25 mg/dl (7-17); Calcium 9.5 mg/dl (8.4-10.2); Carbon Dioxide 26 mmol/L (22-30); Chloride 97 mmol/L (98-107); Glucose 61 mg/dl (70-99); Potassium 4.7 mmol/L (3.5-5.1); Sodium 130 mmol/L (135-145); eGFR > 60.00
== END ==
LOC: REG 14:06
PROVIDERS: ATTENDING PHYSICIAN Specialist; FAMILY PHYSICIAN Family Medicine
DX: I10 Essential (primary) hypertension (principal); E87.1 Hypo-osmolality and hyponatremia; E50.9 Vitamin A deficiency, unspecified
CPT/HCPCS: 36415; 80048

== ENCOUNTER → 2024-12-11 15:15 | Outpatient (REF) | payer MEDICARE, OTHER, SELFPAY ==
[2024-12-11 17:31] LABS: Blood Urea Nitrogen 30 mg/dl (7-17); Calcium 10.0 mg/dl (8.4-10.2); Carbon Dioxide 28 mmol/L (22-30); Chloride 96 mmol/L (98-107); Glucose 104 mg/dl (70-99); Potassium 5.1 mmol/L (3.5-5.1); Sodium 126 mmol/L (135-145); eGFR > 60.00
== END ==
LOC: REG 15:15
PROVIDERS: ATTENDING PHYSICIAN Specialist; FAMILY PHYSICIAN Family Medicine
DX: I10 Essential (primary) hypertension (principal); E87.1 Hypo-osmolality and hyponatremia; D50.9 Iron deficiency anemia, unspecified
CPT/HCPCS: 36415; 80048

== ENCOUNTER → 2024-12-19 14:48 | Outpatient (REF) | payer MEDICARE, OTHER, SELFPAY ==
[2024-12-19 16:14] LABS: Blood Urea Nitrogen 33 mg/dl (7-17); Calcium 10.1 mg/dl (8.4-10.2); Carbon Dioxide 27 mmol/L (22-30); Chloride 94 mmol/L (98-107); Glucose 88 mg/dl (70-99); Potassium 4.6 mmol/L (3.5-5.1); Sodium 128 mmol/L (135-145); eGFR > 60.00
== END ==
LOC: REG 14:48
PROVIDERS: ATTENDING PHYSICIAN Specialist; FAMILY PHYSICIAN Family Medicine
DX: E87.1 Hypo-osmolality and hyponatremia (principal)
CPT/HCPCS: 36415; 80048

== ENCOUNTER → 2025-01-02 14:07 | Outpatient (REF) | payer MEDICARE, OTHER, SELFPAY ==
[2025-01-02 15:41] LABS: Blood Urea Nitrogen 35 mg/dl (7-17); Calcium 10.0 mg/dl (8.4-10.2); Carbon Dioxide 29 mmol/L (22-30); Chloride 95 mmol/L (98-107); Glucose 78 mg/dl (70-99); Potassium 4.5 mmol/L (3.5-5.1); Sodium 131 mmol/L (135-145); eGFR > 60.00
== END ==
LOC: REG 14:07
PROVIDERS: ATTENDING PHYSICIAN Specialist
DX: I10 Essential (primary) hypertension (principal); E87.1 Hypo-osmolality and hyponatremia
CPT/HCPCS: 36415; 80048

== ENCOUNTER → 2025-01-17 15:12 | Outpatient (REF) | payer MEDICARE, OTHER, SELFPAY ==
[2025-01-17 17:01] LABS: Blood Urea Nitrogen 30 mg/dl (7-17); Calcium 9.9 mg/dl (8.4-10.2); Carbon Dioxide 28 mmol/L (22-30); Chloride 94 mmol/L (98-107); Glucose 83 mg/dl (70-99); Potassium 4.6 mmol/L (3.5-5.1); Sodium 128 mmol/L (135-145); eGFR > 60.00
== END ==
LOC: REG 15:12
PROVIDERS: ATTENDING PHYSICIAN Specialist
DX: I10 Essential (primary) hypertension (principal); E87.1 Hypo-osmolality and hyponatremia; D50.9 Iron deficiency anemia, unspecified
CPT/HCPCS: 36415; 80048

== ENCOUNTER → 2025-01-31 14:08 | Outpatient (REF) | payer MEDICARE, OTHER, SELFPAY ==
[2025-01-31 16:05] LABS: ALT (SGPT) 25 U/L (0-35); AST (SGOT) 30 U/L (14-36); Albumin 4.7 g/dl (3.5-5.0); Alkaline Phosphatase 65 U/L (38-126); Blood Urea Nitrogen 53 mg/dl (7-17); Calcium 9.6 mg/dl (8.4-10.2); Carbon Dioxide 24 mmol/L (22-30); Chloride 94 mmol/L (98-107); Glucose 68 mg/dl (70-99); Potassium 4.6 mmol/L (3.5-5.1); Sodium 127 mmol/L (135-145); Total Protein 7.0 g/dl (6.3-8.2); Triglycerides 100 mg/dl (10-149); eGFR > 60.00
== END ==
LOC: REG 14:08
PROVIDERS: ATTENDING PHYSICIAN Specialist
DX: I10 Essential (primary) hypertension (principal); E87.1 Hypo-osmolality and hyponatremia; D50.9 Iron deficiency anemia, unspecified; D50.0 Iron deficiency anemia secondary to blood loss (chronic)
CPT/HCPCS: 36415; 80053; 83930; 83935; 84155; 84165; 84478